=== PATIENT | male | born 1930 | race Caucasian/White ===

== ENCOUNTER 2017-05-13 11:22 | Day surgery (SDC) | payer MEDICARE, OTHER ==
[2017-05-13] MEDS ORDERED: SODIUM CHLORID 0.9% 500 ML IV PRN (12:30)
[2017-05-13] MEDS ORDERED: METOPROLOL TARTRATE 25 MG TAB PO PRN (12:30)
[2017-05-13] MEDS ORDERED: CHLORHEXIDINE GLUCONATE 2 % 1 PACK (2 CLOTHS) TOPICAL PRN (12:30)
[2017-05-13] MEDS ORDERED: POVIDONE IODINE 5% (ANTISEPSIS KIT) 4 APPLICATIONS EACH NARE PRN (12:30)
[2017-05-13] MEDS ORDERED: LACTATED RINGER'S 1000 ML IV PRN (12:30)
[2017-05-13] MEDS ORDERED: XARE20TA PO (13:01)
[2017-05-13] MEDS ORDERED: PROPOFOL 200 MG/20 ML AMP ONE (13:21)
--- NOTE | 2017-05-13 14:33 | MR ---
cc: JEFRY MCCORD DATE: 05/13/2017 INDICATION Atrial fibrillation. PROCEDURE PERFORMED DC cardioversion. DETAILS OF PROCEDURE The patient was sedated by Anesthesia. A 200 joule biphasic shock was delivered on three occasions and converted the patient to sinus rhythm with frequent PACs. The patient remained stable after the procedure. DIAGNOSIS DC cardioversion of atrial fibrillation. DISPOSITION Mr. Moran will be discharged home. We will continue his current medical program. I will see him back for follow-up in our office after discharge. Jfery Mccord MD OQ/[place] /1:51 PM /2:26 PM MTDAngelita
--- NOTE | 2017-05-13 18:04 | EKG ---
Date Performed: 05/13/2017 Time Performed: 12:31:12 PTAGE: 86 years EKG: Atrial fibrillation with PVC(s). Inferior/lateral ST-T changes are nonspecific Abnormal ECG Since PREVIOUS TRACING , no significant change noted PREVIOUS TRACIN08/19/2001 13.27 DOCTOR: Candi Dean Interpretating Date/Time 05/13/2017 18:03:47
--- NOTE | 2017-05-14 12:55 | EKG ---
Date Performed: 05/13/2017 Time Performed: 13:55:48 PTAGE: 86 years EKG: Atrial fibrillation with PVC(s) or aberrant ventricular conduction. Inferior/lateral ST-T c hanges are nonspecific Abnormal ECG PREVIOUS TRACING : 05/13/2017 12.31 Compared to prior tracing no significant change DOCTOR: Diogenes Josue Interpretating Date/Time 05/14/2017 12:55:40
== END 2017-05-13 15:00 | disposition home or self-care (01) ==
LOC: HDOC 11:22 → HDIC 11:23 → HDOC 15:00
PROVIDERS: ATTEND Internal Medicine Interventional Cardiology
DX: I48.91 Unspecified atrial fibrillation (principal); I47.1 Supraventricular tachycardia; E78.5 Hyperlipidemia, unspecified; C61 Malignant neoplasm of prostate; I34.0 Nonrheumatic mitral (valve) insufficiency; I35.1 Nonrheumatic aortic (valve) insufficiency; I36.1 Nonrheumatic tricuspid (valve) insufficiency; R31.9 Hematuria, unspecified
CPT/HCPCS: 92960; 93005

== ENCOUNTER 2017-06-14 11:07 | Inpatient (IN) | payer MEDICARE, OTHER ==
[2017-06-14] VITALS (18 sets, daily range): BP systolic 115–153; BP diastolic 53–68; PULSE 75–112; RESP 12–24; TEMP 94.5–98.8; O2SAT 100
[~2017-06-14] VITALS: Ht 157.5 cm; Wt 52.5 kg
[~2017-06-14 11:07] MED LIST: XARE20TA PO
[2017-06-14] MEDS ORDERED: SODIUM CHLORIDE 0.9% FLUSH 10 ML FLUSH IVF PRN (11:30)
--- NOTE | 2017-06-14 11:37 | PD ---
HPI Chief Complaint: GI Complaint Time Seen by Provider: 11:26 Travel History International Travel<30 days: No Contact w/Intl Traveler<30days: No Traveled to known affect area: No History of Present Illness HPI Patient 86-year-old male presents emergency department for evaluation of 2 days of pallor, weakness and one episode of dark melena stool mixed with bright red blood according to his . Patient has a history of chronic weakness and is followed at home by physical therapy and according to many people a comminuted patient appears quite pale. He is on Xarelto. Has not had a colonoscopy in some time. Patient states he feels quite rundown but has no complaints of pain, no nausea no vomiting. Symptoms of weakness are severe, for the past 2 days and rapidly worsening, associated with GI bleeding as above and in the context of Xarelto use. PFSH Past Medical History Hx Anticoagulant Therapy: Yes (XARELTO) Cardiovascular Problems: Yes (CHF, A-FIB) Past Surgical History Prostatectomy: Yes Social History Alcohol Use: Yes (2 glasses of wine every day) Tobacco Use: No Substance Use: No Allergies-Medications (Allergen,Severity, Reaction): Coded Allergies: No Known Allergies (Unverified Allergy, Unknown, 06/14/17) Reported Meds & Prescriptions Reported Meds & Active Scripts Active Reported Xarelto (Rivaroxaban) 20 Mg Tab 20 Mg PO DAILY Digoxin 0.125 Mg Tab 0.125 Mg PO DAILY Furosemide 40 Mg Tab 40 Mg PO DAILY Klor-Con 10 (Potassium Chloride) 10 Meq Tab 20 Meq PO DAILY Spironolactone 25 Mg Tab 25 Mg PO DAILY Xarelto (Rivaroxaban) 20 Mg Tab 20 Mg PO DAILY Review of Systems Except as stated in HPI: all other systems reviewed are Neg Physical Exam Narrative GENERAL: Well-developed appears extremely pale and run down. SKIN: Focused skin assessment cool and dry and pale.. HEAD: Atraumatic. Normocephalic. EYES: Pupils equal and round. No scleral icterus. No injection or drainage. ENT: No nasal bleeding or discharge. Mucous membranes pink and moist. NECK: Trachea midline. No JVD. CARDIOVASCULAR: Regular rate and rhythm. No murmur appreciated. RESPIRATORY: No accessory muscle use. Clear to auscultation. Breath sounds equal bilaterally. GASTROINTESTINAL: Abdomen soft, non-tender, nondistended. Hepatic and splenic margins not palpable. Blood and melena noticed on rectal exam for rectal temperature. MUSCULOSKELETAL: No obvious deformities. No clubbing. No cyanosis. No edema. NEUROLOGICAL: Awake and alert hard of hearing but appears to be oriented.. Renal nerves II through XII are grossly intact and nonfocal, globally weak but has equal strength in bilateral upper and bilateral lower extremity's. PSYCHIATRIC: Appropriate mood and affect; insight and judgment normal. Data Data Last Documented VS Vital Signs Date Time Temp Pulse Resp B/P (MAP) Pulse Ox O2 Delivery O2 Flow Rate FiO2 06/14/17 13:00 94.5 06/14/17 12:04 103 17 129/59 (82) 06/14/17 11:08 100 Orders Orders Complete Blood Count With Diff (06/14/17 11:24) Comprehensive Metabolic Panel (06/14/17 11:24) Prothrombin Time / Inr (Pt) (06/14/17 11:24) Act Partial Throm Time (Ptt) (06/14/17 11:24) Urinalysis - C+S If Indicated (06/14/17 11:24) Type And Screen (06/14/17 11:24) Ecg Monitoring (06/14/17 11:24) Iv Access Insert/Monitor (06/14/17 11:24) Oximetry (06/14/17 11:24) Sodium Chloride 0.9% Flush (Ns Flush) (06/14/17 11:30) Red Blood Cells (Rbc) (06/14/17 12:34) Blood Product Administration (06/14/17 12:34) Sodium Chlor 0.9% 250 Ml Inj (Ns 250 Ml (06/14/17 12:45) Lactic Acid (06/14/17 12:50) Chest, Single Ap (06/14/17 ) Admit Order (Ed Use Only) (06/14/17 ) Labs Laboratory Tests Test 06/14/17 11:48 06/14/17 13:00 White Blood Count 5.9 TH/MM3 Red Blood Count 1.60 MIL/MM3 Hemoglobin 4.1 GM/DL Hematocrit 14.0 % Mean Corpuscular Volume 87.5 FL Mean Corpuscular Hemoglobin 25.8 PG Mean Corpuscular Hemoglobin Concent 29.4 % Red Cell Distribution Width 19.7 % Platelet Count 286 TH/MM3 Mean Platelet Volume 8.7 FL Neutrophils (%) (Auto) 75.8 % Lymphocytes (%) (Auto) 15.8 % Monocytes (%) (Auto) 7.9 % Eosinophils (%) (Auto) 0.1 % Basophils (%) (Auto) 0.4 % Neutrophils # (Auto) 4.5 TH/MM3 Lymphocytes # (Auto) 0.9 TH/MM3 Monocytes # (Auto) 0.5 TH/MM3 Eosinophils # (Auto) 0.0 TH/MM3 Basophils # (Auto) 0.0 TH/MM3 CBC Comment AUTO DIFF Differential Total Cells Counted 100 Neutrophils % (Manual) 76 % Band Neutrophils % 3 % Lymphocytes % 16 % Monocytes % 4 % Basophils % 1 % Neutrophils # (Manual) 4.7 TH/MM3 Nucleated Red Blood Cells 4 /100 WBC Differential Comment FINAL DIFF MANUAL Platelet Estimate NORMAL Platelet Morphology Comment NORMAL Acanthocytes OCC Prothrombin Time 22.7 SEC Prothromb Time International Ratio 2.2 RATIO Activated Partial Thromboplast Time 27.7 SEC Blood Urea Nitrogen 49 MG/DL Creatinine 1.89 MG/DL Random Glucose 169 MG/DL Total Protein 6.0 GM/DL Albumin 3.0 GM/DL Calcium Level 8.3 MG/DL Alkaline Phosphatase 78 U/L Aspartate Amino Transf (AST/SGOT) 35 U/L Alanine Aminotransferase (ALT/SGPT) 29 U/L Total Bilirubin 0.9 MG/DL Sodium Level 140 MEQ/L Potassium Level 3.8 MEQ/L Chloride Level 105 MEQ/L Carbon Dioxide Level 13.9 MEQ/L Anion Gap 21 MEQ/L Estimat Glomerular Filtration Rate 34 ML/MIN Total Creatine Kinase 266 U/L B-Type Natriuretic Peptide 291 PG/ML Lactic Acid Level 12.7 mmol/L MDM Medical Decision Making Medical Screen Exam Complete: Yes Emergency Medical Condition: Yes Differential Diagnosis GI bleeding, anticoagulated, severe anemia. Narrative Course 86-year-old male presents emergency department with fatigue over the past 2 days accompanied with both dark M bright red blood per rectum. Has severe anemia with a hemoglobin of 4.1, hypothermia with a core temperature of 94, on bear hugger, hemodynamically stable. He has been typing cross for 2 units, He is on xarelto will be given 1 dose of Kcentra. Initially acidotic patient was discussed with the residents for admission, initial recommendations for intermediate care given his level of anemia his weakness and his relative hypothermia. Lactic acid was sent and was elevated significantly to the point with the patient was upgraded to the ICU. Patient was also discussed directly with Dr. Bradford. Stabilizing in the emergency department he is getting blood transfusions. Critical Care Narrative Aggregate critical care time was 35 minutes. Time to perform other separately billable procedures was not included in the critical care time. My time did not include minutes spent treating any other patients simultaneously or on activities that did not directly contribute to the patient's treatment. The services I provided to this patient were to treat and/or prevent clinically significant deterioration that could result in: , disability and organ failure I provided critical care services requiring my management, as noted below: Chart data review, documentation time, medication orders and management, vital sign assessments/reviewing monitor data, ordering and reviewing lab tests, ordering and interpreting/reviewing x-rays and diagnostic studies, care of the patient and discussion of the patient with the admitting physicians. Some time counseling patient's family regarding his diagnosis. Decision-making for reversal of Xarelto with KCentra. Discussion with multiple consultants who arrived including Dr. jett and Dr. Bales Diagnosis Primary Impression: Hypothermia Qualified Codes: T68.XXXA - Hypothermia, initial encounter Additional Impressions: Elevated lactic acid level Acute blood loss anemia GI bleed Admitting Information Admitting Physician Requests: Admit Condition: Serious Jose Luis Galaviz MD Jun 14, 2017 11:37
[2017-06-14] MEDS ORDERED: FURO40TA PO (12:19)
[2017-06-14] MEDS ORDERED: SPIR25TA PO (12:19)
[2017-06-14] MEDS ORDERED: XARE20TA PO (12:19)
[2017-06-14] MEDS ORDERED: KLOR10TA PO (12:19)
[2017-06-14] MEDS ORDERED: DIGO0.12 PO (12:19)
[2017-06-14 12:27] LABS: AUTOMATED NEUTROPHIL # 4.5 TH/MM3 (1.8-7.7); BASOPHIL % 0.4 % (0.0-2.0); EOSINOPHIL % 0.1 % (0.0-4.0); LYMPH % 15.8 % (9.0-44.0); LYMPHOCYTE # 0.9 TH/MM3 (1.0-4.8); MEAN CELL VOLUME 87.5 FL (80.0-100.0); MEAN CORPUSCULAR HEMOGLOBIN 25.8 PG (27.0-34.0); MEAN PLATELET VOLUME 8.7 FL (7.0-11.0); MONO % 7.9 % (0.0-8.0); MONOCYTE # 0.5 TH/MM3 (0-0.9); NEUT % 75.8 % (16.0-70.0); PLATELET COUNT 286 TH/MM3 (150-450); RED CELL DISTRIBUTION WIDTH 19.7 % (11.6-17.2); WHITE BLOOD COUNT 5.9 TH/MM3 (4.0-11.0)
[2017-06-14 12:31] LABS: MEAN CORPUSCULAR HGB CONC 29.4 % (32.0-36.0)
[2017-06-14 12:32] LABS: INTERNATIONAL NORMALIZED RATIO 2.2 RATIO; PROTHROMBIN TIME - PATIENT 22.7 SEC (9.8-11.6)
[2017-06-14 12:33] LABS: HEMOGLOBIN 4.1 GM/DL (13.0-17.0)
[2017-06-14 12:39] LABS: AST (GOT) 35 U/L (15-37); BICARBONATE 13.9 MEQ/L (21.0-32.0); BLOOD UREA NITROGEN 49 MG/DL (7-18); CALCIUM 8.3 MG/DL (8.5-10.1); CHLORIDE 105 MEQ/L (98-107); CREATININE 1.89 MG/DL (0.60-1.30); GLOMERULAR FILTRATION RATE 34 ML/MIN (>89); GLUCOSE,RANDOM 169 MG/DL (74-106); SODIUM (NA) 140 MEQ/L (136-145)
[2017-06-14 12:43] LABS: ALKALINE PHOSPHATASE 78 U/L (45-117); ALT (GPT) 29 U/L (12-78); TOTAL BILIRUBIN ADULT 0.9 MG/DL (0.2-1.0)
[2017-06-14] MEDS ORDERED: SODIUM CHLOR 0.9% 250 ML INJ 250 ML IV ONE ×2 (12:45→19:30)
[2017-06-14 13:01] LABS: BANDS 3 % (0-6); BASOPHILS 1 % (0-2); CORRECTED NUCLEATED RBC 4 /100 WBC (0-0); LYMPHOCYTES 16 % (9-44); MONOCYTES 4 % (0-8); NEUTROPHIL # MANUAL DIFF 4.7 TH/MM3 (1.8-7.7); NUCLEATED RED BLOOD CELL 4 (0-0); POLYS (SEG NEUTROPHILS) 76 % (16-70)
[2017-06-14 13:05] LABS: ACANTHOCYTES OCC (NORMAL)
[2017-06-14] MEDS ORDERED: PROTHROMBIN COMPLEX CONC INJ 2,500 UNITS in SYRINGE/BAG 1 EA IV ONE (13:45)
--- NOTE | 2017-06-14 13:57 | RADRPT ---
EXAM DATE/TIME: 06/14/2017 13:21 [facility] COMPARISON: No previous studies available for comparison. INDICATIONS : Fever. MEDICAL HISTORY : Congestive heart failure. Atrial fibrillation. Hypotension. SURGICAL HISTORY : None. ENCOUNTER: Initial ACUITY: 2 days PAIN SCORE: 0/10 LOCATION: Bilateral chest FINDINGS: A single view of the chest demonstrates the lungs to be symmetrically aerated without evidence of mas s, infiltrate or effusion. The cardiomediastinal contours reveal compensated left ventricular cardio megaly. Osseous structures are intact. CONCLUSION: No acute disease. Compensated left ventricular cardiomegaly Haja Chavis MD on June 14, 2017 at 13:54 Board Certified Radiologist. This report was verified electronically.
--- NOTE | 2017-06-14 14:14 | HHI.HP ---
[facility] Service Family Medicine Primary Care Physician Mazin Bell MD Admission Diagnosis GI bleeding, Severe Anemia Diagnoses: International Travel<30 Days: No Contact w/Intl Traveler<30days: No Known Affected Area: No History of Present Illness 86 y/o M, history of A. fib with DC cardioversion, SVT, and prostate cancer, presents s/p fall this AM. Over the last 2 weeks he has been feeling more fatigued and short of breath. He has had a decreased appetite over the last week. He denies N/V. He had 2 episodes of bloody diarrhea this morning when he woke up. He states he tripped over furniture and fell onto the floor. He was not injured but did not want to get up by himself. He waited for 4 hours for his to get home to help him get up. He usually walks easily by himself but he has had more difficulty over the last few days. Denies any chest pain, dizzyness, blurry vision. He denies any confusion or loss of consciousness at the time of the fall. He denies any history of anemia. Review of Systems Constitutional: COMPLAINS OF: Weight loss (7lbs in 1 week), DENIES: Fever, Chills Endocrine: COMPLAINS OF: Polyuria (increased frequency, he is unsure how long, takes pills for it>) Eyes: DENIES: Eye inflammation, Eye pain Ears, nose, mouth, throat: DENIES: Nasal discharge, Oral lesions Respiratory: DENIES: Wheezing, Sputum production Cardiovascular: DENIES: Chest pain, Palpitations, Syncope Gastrointestinal: COMPLAINS OF: Black stools (here a week ago for HF and had black stool from pills?), Diarrhea (x2 this AM), DENIES: Constipation, Nausea, Vomiting Genitourinary: DENIES: Testicular Pain, Testicular Swelling Integumentary: DENIES: Nail changes Neurologic: DENIES: Headache, Localized weakness Psychiatric: DENIES: Confusion, Mood changes Past Family Social History Past Medical History BPH Atrial fibrillation, with DC cardioversion Supraventricular tachycardia Dyslipidemia Prostate cancer Past Surgical History Radical prostatectomy Surgery for spinal stenosis [facility] Had colonoscopy - doesn't know when Allergies: Coded Allergies: No Known Allergies (Unverified Allergy, Unknown, 06/14/17) Family History Noncontributory Social History live at home with , 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 SKIN: No rashes, ecchymoses or lesions. Cool and dry. HEAD: Atraumatic. Normocephalic. No temporal or scalp tenderness. EYES: Pupils equal round and reactive. Extraocular motions intact. No scleral icterus. No injection or drainage. ENT: Nose without bleeding, purulent drainage or septal hematoma. Throat without erythema, tonsillar hypertrophy or exudate. Uvula midline. Airway patent. NECK: Trachea midline. No JVD or lymphadenopathy. Supple, nontender, no meningeal signs. CARDIOVASCULAR: Irregularly irregular, no murmurs rubs or gallops. RESPIRATORY: Clear to auscultation. Breath sounds equal bilaterally. No wheezes , rales, or rhonchi. GASTROINTESTINAL: Abdomen soft, non-tender, nondistended. No hepato-splenomegaly , or palpable masses. No guarding. MUSCULOSKELETAL: Extremities without clubbing, cyanosis, or edema. No joint tenderness, effusion, or edema noted. No calf tenderness. Negative Homans sign bilaterally. NEUROLOGICAL: Awake and alert. Cranial nerves II through XII intact. Motor and sensory grossly within normal limits. Five out of 5 muscle strength in all muscle groups. Normal speech. Laboratory Laboratory Tests Test 06/14/17 11:48 06/14/17 13:00 White Blood Count 5.9 Red Blood Count 1.60 Hemoglobin 4.1 Hematocrit 14.0 Mean Corpuscular Volume 87.5 Mean Corpuscular Hemoglobin 25.8 Mean Corpuscular Hemoglobin Concent 29.4 Red Cell Distribution Width 19.7 Platelet Count 286 Mean Platelet Volume 8.7 Neutrophils (%) (Auto) 75.8 Lymphocytes (%) (Auto) 15.8 Monocytes (%) (Auto) 7.9 Eosinophils (%) (Auto) 0.1 Basophils (%) (Auto) 0.4 Neutrophils # (Auto) 4.5 Lymphocytes # (Auto) 0.9 Monocytes # (Auto) 0.5 Eosinophils # (Auto) 0.0 Basophils # (Auto) 0.0 CBC Comment AUTO DIFF Differential Total Cells Counted 100 Neutrophils % (Manual) 76 Band Neutrophils % 3 Lymphocytes % 16 Monocytes % 4 Basophils % 1 Neutrophils # (Manual) 4.7 Nucleated Red Blood Cells 4 Differential Comment FINAL DIFF MANUAL Platelet Estimate NORMAL Platelet Morphology Comment NORMAL Acanthocytes OCC Prothrombin Time 22.7 Prothromb Time International Ratio 2.2 Activated Partial Thromboplast Time 27.7 Blood Urea Nitrogen 49 Creatinine 1.89 Random Glucose 169 Total Protein 6.0 Albumin 3.0 Calcium Level 8.3 Alkaline Phosphatase 78 Aspartate Amino Transf (AST/SGOT) 35 Alanine Aminotransferase (ALT/SGPT) 29 Total Bilirubin 0.9 Sodium Level 140 Potassium Level 3.8 Chloride Level 105 Carbon Dioxide Level 13.9 Anion Gap 21 Estimat Glomerular Filtration Rate 34 Result Diagram: 06/14/17 1148 06/14/17 1148 Septic Shock Reassessment Septic shock perfusion: reassessment completed Caprini VTE Risk Assessment Caprini VTE Risk Assessment: Mod/High Risk (score >= 2) Caprini Risk Assessment Model Point Value = 1 Point Value = 2 Point Value = 3 Point Value = 5 Age 41-60 Minor surgery BMI > 25 kg/m2 Swollen legs Varicose veins or History of unexplained or recurrent spontaneous Oral contraceptives or hormone replacement Sepsis (< 1 month) Serious lung disease, including pneumonia (< 1 month) Abnormal pulmonary function Acute myocardial infarction Congestive heart failure (< 1 month) History of inflammatory bowel disease Medical patient at bed rest Age 61-74 Arthroscopic surgery Major open surgery (> 45 min) Laparoscopic surgery (> 45 min) Malignancy Confined to bed (> 72 hours) Immobilizing plaster cast Central venous access Age >= 75 History of VTE Family history of VTE Factor V Leiden Prothrombin [id number] Lupus anticoagulant Anticardiolipin antibodies Elevated serum homocysteine Heparin-induced thrombocytopenia Other congenital or acquired thrombophilia Stroke (< 1 month) Elective arthroplasty Hip, pelvis, or leg fracture Acute spinal cord injury (< 1 month) Prophylaxis Regimen Total Risk Factor Score Risk Level Prophylaxis Regimen 0-1 Low Early ambulation 2 Moderate Order ONE of the following: *Sequential Compression Device (SCD) *Heparin 5000 units SQ BID 3-4 Higher Order ONE of the following medications: *Heparin 5000 units SQ TID *Enoxaparin/Lovenox 40 mg SQ daily (WT < 150 kg, CrCl > 30 mL/min) *Enoxaparin/Lovenox 30 mg SQ daily (WT < 150 kg, CrCl > 10-29 mL/min) *Enoxaparin/Lovenox 30 mg SQ BID (WT < 150 kg, CrCl > 30 mL/min) AND/OR *Sequential Compression Device (SCD) 5 or more Highest Order ONE of the following medications: *Heparin 5000 units SQ TID (Preferred with Epidurals) *Enoxaparin/Lovenox 40 mg SQ daily (WT < 150 kg, CrCl > 30 mL/min) *Enoxaparin/Lovenox 30 mg SQ daily (WT < 150 kg, CrCl > 10-29 mL/min) *Enoxaparin/Lovenox 30 mg SQ BID (WT < 150 kg, CrCl > 30 mL/min) AND *Sequential Compression Device (SCD) Assessment and Plan Assessment and Plan 86-year-old male, on chronic anticoagulation for atrial fibrillation, presents with 2 weeks of weakness and fatigue, bright red blood per rectum, and hemoglobin of 4.1. Patient admitted for transfusion, anticoagulation reversal, and GI evaluation. Discussed Condition With Dr. Bradford Problem List: (1) Acute kidney injury ICD Codes: N17.9 - Acute kidney failure, unspecified Status: Acute Plan: History of BPH Unknown baseline creatinine Creatinine 1.89 on admission Continue with IV fluids @ 100mls/hr Continue home diuretics; Lasix 40 PO daily, Spironolactone 25mg daily Add Lasix 20mg IVP x 1 to cover for blood transfusion (2) Hypothermia ICD Codes: T68.XXXA - Hypothermia, initial encounter Status: Resolved Plan: Temperature of 94.5 on admission Likely related to acute anemia and hemoglobin of 4 Bear hugger administered Last Temp: 98.5 f/u temps (3) Acute blood loss anemia ICD Codes: D62 - Acute posthemorrhagic anemia Status: Acute Plan: Acute anemia, bright red blood per rectum, hemodynamically stable INR 2.2, Xarelto reversed Cleared for endoscopy by Cardio Symptoms 2 weeks, hemoglobin of 4.1 on admission Transfuse 4 units PRBCs Follow up posttransfusion CBC Appreciate GI recs: f/u upper endoscopy Will consider Colonoscopy (4) Elevated lactic acid level ICD Codes: R79.89 - Other specified abnormal findings of blood chemistry Status: Resolved Plan: Elevated lactic acid on admission of 12.7 May be due to lack of tissue perfusion Repeat lactic acid 2.7 (5) Atrial fibrillation ICD Codes: I48.91 - Unspecified atrial fibrillation Status: Chronic Plan: Chronic atrial fibrillation & SVT, with Xarelto anticoagulation Continue Digoxin Hold Xarelto Status post K Centra INR 2.2 Due to over anticoagulation? (6) GI bleed ICD Codes: K92.2 - Gastrointestinal hemorrhage, unspecified Status: Acute Plan: See plan under anemia for endoscopy GI following Follow-up results of endoscopy Consider colonoscopy Continue Protonix 40 mg IV twice a day (7) Fall ICD Codes: W19.XXXA - Unspecified fall, initial encounter Status: Acute Plan: Likely due to weakness and anemia versus sepsis versus electrolyte abnormality versus hypoglycemia No loss of consciousness per patient Follow-up H&H Follow-up blood culture Follow-up urine culture Chest x-ray within normal limits f/u BMP and electrolytes in AM (8) fen/px Status: Acute Plan: Fluids: Continue normal saline at 100mls/hr for BETI, continue home diuretics and caution with overhydration Electrolytes: BMP within normal limits, follow-up BMP tomorrow Nutrition: Liquid diet per GI GI prophylaxis: Pantoprazole DVT prophylaxis: Held Physician Certification 2 Midnight Certification Type: Admission for Inpatient Services Order for Inpatient Services The services are ordered in accordance with Medicare regulations or non- Medicare payer requirements, as applicable. In the case of services not specified as inpatient-only, they are appropriately provided as inpatient services in accordance with the 2-midnight benchmark. Estimated LOS (days): 2 days is the estimated time the patient will need to remain in the hospital, assuming treatment plan goals are met and no additional complications. Post-Hospital Plan: Home Fay Dillard MD R2 Jun 14, 2017 14:14
[2017-06-14] MEDS ORDERED: TEMAZEPAM 15 MG CAP PO PRN (14:45)
[2017-06-14] MEDS ORDERED: LACTULOSE SYRUP 20 GM/30 ML CUP PO PRN (14:45)
[2017-06-14] MEDS ORDERED: BISACODYL 10 MG SUPP RECTAL PRN (14:45)
[2017-06-14] MEDS ORDERED: MAGNESIUM HYDROXIDE SUSP 30 ML CUP PO PRN (14:45)
[2017-06-14] MEDS ORDERED: ONDANSETRON HCL 4 MG/2 ML VIAL IVP PRN (14:45)
[2017-06-14] MEDS ORDERED: NALOXONE HCL 0.4 MG/ML AMP IV PUSH PRN (14:45)
[2017-06-14] MEDS ORDERED: SENNOSIDES 8.6 MG TAB PO PRN (14:45)
[2017-06-14] MEDS ORDERED: ACETAMINOPHEN 325 MG TAB PO PRN (14:45)
[2017-06-14] MEDS ORDERED: PANTOPRAZOLE SODIUM 40 MG VIAL IV PUSH SCH (16:00)
[2017-06-14] MEDS: DIGOXIN 0.125 MG TAB PO SCH (16:58)
[2017-06-14] MEDS: SPIRONOLACTONE 25 MG TAB PO SCH (16:59)
[2017-06-14] MEDS: POTASSIUM CHLORIDE 10 MEQ CONTROLLED RELEASE TAB PO SCH (16:59)
[2017-06-14] MEDS: FUROSEMIDE 40 MG TAB PO SCH (16:59)
--- NOTE | 2017-06-14 17:16 | HHI.FPPN ---
Subjective Remarks Attending medical note: Patient seen and examined. Patient known to the undersigned physician from the previous practice location 4.5 years ago. Patient's and daughter at bedside. 86-year-old gentleman admitted after the insidious onset of the last 2 weeks of feeling increasingly fatigued and short of breath. On the day of admission patient's observed him to be on the floor after a probable fall, was assisted to the bathroom where she noted bright red blood per rectum. No prior history of GI bleeding. Patient last had a colonoscopy by Dr. Xavi Miller they estimate for- 5 years ago. Has never had an upper endoscopy. No prior history of peptic ulcer disease. Has not taking any NSAIDs or aspirin. It is of note that the patient has been on Xarelto 12 mg daily and has already received KCentra dose. In the fall of 2016 was diagnosed with atrial fibrillation, patient's regional wildlife agent is Dr. Mccord who has artery seen the patient as well in the emergency room. Patient is alert, appears to be somewhat distant in conversation and is unable to give easily orientation to time and place. Medications have included the Xarelto, digoxin 0.25 mg daily, Lasix 40 mg daily , Klor-Con 10 milliequivalent daily, prolactin 25 mg daily. Patient has had an associated congestive heart failure treated over the last 2-3 months. In addition the patient has had hematuria, his urologist Dr. Michelle has not been able to perform a cystoscopy to date although imaging apparently is unremarkable of the tract. Objective Vitals Vital Signs Date Time Temp Pulse Resp B/P (MAP) Pulse Ox O2 Delivery O2 Flow Rate FiO2 06/14/17 17:01 98.1 94 24 124/53 100 06/14/17 16:47 98.8 97 23 124/53 100 06/14/17 16:26 98.8 83 15 124/58 100 06/14/17 15:42 79 12 115/56 100 06/14/17 14:52 100 21 06/14/17 14:45 97.7 86 21 124/56 100 06/14/17 13:54 97.7 92 21 126/58 100 06/14/17 13:39 97.6 82 16 137/59 100 06/14/17 13:00 94.5 06/14/17 12:04 103 17 129/59 (82) 06/14/17 11:08 97.4 112 14 149/59 (89) 100 I/O 06/13/17 06/13/17 06/13/17 06/14/17 06/14/17 06/14/17 07:00 15:00 23:00 07:00 15:00 23:00 Intake Total 800 ml Balance 800 ml Intake IV Total 350 ml Packed Cells 400 ml Blood Product IV Normal Saline Flush 50 ml Result Diagram: 06/14/17 1148 06/14/17 1148 Objective Remarks Vital signs noted. Blood pressure 149/59 pulse 100/m and irregular consistent with a defibrillation tension at some point for had been hypothermic on presentation. Appearance: Older gentleman who is notably pale, makes good eye contact, recognizes undersigned and has difficulty with orientation. HEENT: Presence of dentures, very pale mucosa, pale face. Lungs: Diminished clear breath sounds Cardiac: Irregular rhythm, no S3, faint systolic murmur the left sternal border. Abdomen Active bowel sounds, soft, nontender no masses. Extremities: Warm and dry, no edema. 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 We'll follow. A/P Assessment and Plan Clinical assessment #1 bright red blood per rectum with found hemoglobin of 4.1. Hematocrit 14.0. On Zaroxolyn. Will transfuse 2 at least a hemoglobin of 8 very carefully. Reversal agent for Xarelto aren't administered. Strength testing consultation. Dr. Mccord has seen patient clearing for colonoscopy when appropriate clinically. #2 history of atrial fibrillation on anticoagulation #3 congestive heart failure #4 BPH and hematuria #5 elevated lactate acid #6 refer to resident note for additional past medical history, social history, family history and review of systems. And examined. Case reviewed and discussed with the resident team. Agree with plan of care is discussed with me and documented in the resident note. Ángel Bradford MD Jun 14, 2017 17:16
--- NOTE | 2017-06-14 17:52 | MB ---
cc: DEBRARIVER DATE OF CONSULTATION: 06/14/2017. HISTORY OF PRESENT ILLNESS: Mr. Moran is an 86-year-old white male with history of atrial fibrillation who was found by his after he fell out of bed this morning. He did not lose consciousness. He has been progressively tired and weak. He also admitted to shortness of breath but no chest pain. His noticed bloody diarrhea today. He was found to be severely anemic. He has been anticoagulated with Xarelto for his atrial fibrillation. PAST MEDICAL HISTORY: His past medical history is positive for: 1. Atrial fibrillation. 2. Supraventricular tachycardia. 3. Dyslipidemia. 5. Prostate cancer. 6. Keratosis. 7. History of surgery for spinal stenosis. 8. Radical prostatectomy. 9. History of DC cardioversion for atrial fibrillation. MEDICATIONS: 1. Xarelto. 2. Digoxin. 3. Furosemide. 4. Spironolactone. ALLERGIES None. SOCIAL HISTORY: The patient does not smoke. He drinks alcohol socially. He is and accompanied by his and his daughter. FAMILY HISTORY: Family history is positive for heart disease in both parents. REVIEW OF SYSTEMS: The review of systems is otherwise negative. PHYSICAL EXAMINATION: VITAL SIGNS: Blood pressure 124/53, pulse 97 and irregular. HEAD, EYES, EARS, NOSE, THROAT: Negative. NECK: 2+ carotid upstrokes, no bruits. LUNGS: Clear. HEART: Irregularly irregular with a 2/6 systolic murmur at the left lateral sternal border and apex. No gallop or rub. ABDOMEN: Abdomen soft. No bruits. EXTREMITIES: Without edema. 1 to 2+ distal pulses. NEUROLOGIC: Grossly nonfocal. EKGS: EKG was reviewed and showed atrial fibrillation, PVCs and diffuse ST-T changes. LABORATORY DATA: Hemoglobin 4.1, hematocrit 14.0. Potassium 3.8, creatinine 1.89. AST 35, ALT 29. DIAGNOSIS: 1. Lower GI bleeding. 2. Severe anemia. 3. Chronic atrial fibrillation. 4. Anticoagulation. DISPOSITION Mr. Moran was transfused and was given Kcentra to reverse his anticoagulation. He will undergo GI evaluation including endoscopy. He had a PET scan which was negative for ischemia in March of 2017. He can be cleared for endoscopy from the cardiac standpoint. I will follow him for cardiology during his hospitalization. I will also see him back for followup in our office after discharge. MD LYLE Montiel/SHANNAN /4:54 PM /5:22 PM IVANIA
[2017-06-14] MEDS: SODIUM CHLOR 0.9% 1000 ML INJ 1,000 ML IV SCH (18:17)
[2017-06-14 18:48] LABS: URINE COLOR YELLOW (YELLW/STRAW)
[2017-06-14 18:49] LABS: BACTERIA, URINE RARE /hpf; BILIRUBIN, URINE NEG (NEG); BLOOD, URINE NEG (NEG); GLUCOSE,URINE NEG (NEG); HYALINE CAST, URINE 20 /lpf (RARE); KETONE, URINE NEG (NEG); MUCUS URINE FEW /lpf (OCC); NITRITE,URINE NEG (NEG); URINE LEUKOCYTE ESTERASE NEG (NEG)
[2017-06-14] MEDS: PANTOPRAZOLE SODIUM 40 MG VIAL IV PUSH SCH (19:50)
--- NOTE | 2017-06-14 19:59 | MB ---
cc: CLIFF HERNANDEZ MD DATE OF CONSULTATION: 06/14/2017. REASON FOR CONSULTATION: GI bleed. REFERRING PHYSICIAN: Dr. Mccord. HISTORY OF PRESENT ILLNESS: Alban is a very pleasant 86-year-old male with a history of atrial fibrillation that the family states was discovered this past fall of 2016. They state he underwent an unsuccessful cardioversion and was subsequently started on Xarelto a few months ago. His daughter, rKys, states that when he first started on Xarelto he had one black stool and some gross hematuria but that resolved on its own. He had a colonoscopy with Dr. Miller approximately 5 years ago and they state nothing was found. He has had a few colonoscopies over the years and they state he has no history of diverticular disease or polyps. He has never had an upper endoscopy. No history of ulcer disease. He has been having problems with shortness of breath and dyspnea on exertion and was thought recently by his athletic turf worker to be in congestive heart failure. They state his ankles were swelling, which improved with diuretics. Over the past few weeks he also has had poor appetite and some difficulty eating. His daughter states that he has been living on just a couple of Ensures a day. No nausea or vomiting. He denies any abdominal pain. No heartburn. This morning he was very dizzy and fell but did not lose consciousness. He was found by his and had a large bloody stool that she states was both dark and red but mostly red. It was also described as a maroon color. His last bowel movement was this morning. He was brought to the emergency room and his hemoglobin was 4.1. He is now getting a second unit of packed red blood cells. His INR was 2.2 with a pro-time of 22.7 and he did receive Kcentra to reverse his Xarelto. He is feeling better. He has no chest pain. He has been seen by Dr. Mccord and cleared for endoscopic procedures. SOCIAL HISTORY: The patient is and his , Keerthi, is at the bedside and his eldest daughter, Krys, is at the bedside. No smoking history. He has a history of social drinking. PAST MEDICAL HISTORY: His medical history is remarkable for: 1. Atrial fibrillation, 2. Dyslipidemia. 3. Prostate cancer. 4. Spinal stenosis. PAST SURGICAL HISTORY: He has had a prostatectomy. ALLERGIES: HE HAS NO KNOWN DRUG ALLERGIES. MEDICATIONS AT HOME: His medications at home have been: 1. The Xarelto. 2. Diuretics. 3. He was recently also started on Digoxin. He does not take aspirin or NSAIDs because of the Xarelto. FAMILY HISTORY: Family history is remarkable for heart disease. REVIEW OF SYSTEMS: His review of systems is remarkable for the recent decline over the last month or so, according to his family, with poor appetite and some occasional abdominal discomfort. He also has had lightheadedness and dizziness for the past few days and the maroon bloody stool this morning as mentioned above. No chest pain. The remainder of the ten-point review of systems is unremarkable. PHYSICAL EXAMINATION: GENERAL: The physical exam reveals a slightly pale male in no acute distress. VITAL SIGNS: His blood pressure is 139/60, pulse 88, respirations are 17 and nonlabored. Temperature is 98.3 orally. HEAD, EYES, EARS, NOSE, THROAT: The sclerae are nonicteric. NECK: No obvious jugular venous distention. LUNGS: Clear to auscultation and percussion. HEART: Heart sounds are irregular with a 1-2/6 systolic murmur on the lower sternal border. ABDOMEN: The abdomen is soft, nontender and nondistended. No masses. No organomegaly. Bowel sounds are normal. RECTAL: Deferred. No cyanosis or clubbing. He has just trace ankle edema bilaterally. NEUROLOGIC: He is alert and answers questions appropriately. LABORATORY DATA: In addition to his severe anemia with hemoglobin of 4.1, hematocrit of 14, his platelet count is normal at 286,000. White count 5.9. BUN was 49 with creatinine of 1.89. Carbon dioxide of 13.9 and a lactic acid of 12.7. A blood arterial blood gas is pending. AST 35, ALT 29, alkaline phosphatase and bilirubin are normal. Albumin is 3.0. IMAGING STUDIES: Chest x-ray shows compensated left ventricular cardiomegaly with no active disease. IMPRESSION: 1. GI bleed with severe anemia. 2. Atrial fibrillation recently on Xarelto. 3. Recent decline in appetite. PLAN: I had a lengthy discussion with his and his daughter, Krys, at the bedside. The bleeding appears to have slowed as he is hemodynamically stable and not had a bowel movement for several hours. His Xarelto has been reversed and he is getting a transfusion. He also received a dose of pantoprazole and has it ordered for q. 12 hours. I discussed the possibility of an upper GI bleed as well as a lower GI bleed. He has no significant abdominal pain so a diverticular bleed is certainly high on the list. He also has been having some upper GI vague symptoms along with decreased appetite, and certainly an upper GI problem including malignancy needs to be considered. They are concerned about his age and frailty. He had a negative PET scan for ischemia in March of 2017 and has been cleared for endoscopic procedures by Dr. Mccord. I discussed some different options and I would recommend that we continue to resuscitate him transfusing as necessary and monitor his hemoglobin and hematocrit closely. Hopefully his bleeding will stop on its own. I would advise at least an upper endoscopy to rule out any upper GI pathology as discussed above. The indications for colonoscopy were also discussed. Clearing the colon for possible future anticoagulation would be helpful but they state that they would prefer that he not undergo colonoscopy if possible. I think it would be too difficult for him to prep adequately for colonoscopy tonight given his frailty and anemia. If no source for upper GI bleed, can re-discuss the colonoscopy option during this admission. I reviewed the risks of the endoscopic procedures as well as the benefits and alternatives and informed consent was obtained. Will follow closely with you. Thank you this consult. MD JULIO Barnett/SHANNAN /6:29 PM /7:17 PM IVANIA
[2017-06-14] MEDS ORDERED: FUROSEMIDE 20 MG/2 ML VIAL IV PUSH ONE (20:00)
[2017-06-14] MEDS ORDERED: CHLORHEXIDINE GLUCONATE 2 % 1 PACK (2 CLOTHS)(extra cloths) TOPICAL PRN (20:45)
[2017-06-14 22:09] LABS: LACTIC ACID SEPSIS PROTOCOL 2.7 mmol/L (0.4-2.0)
[2017-06-15] VITALS (14 sets, daily range): BP systolic 115–142; BP diastolic 56–67; PULSE 60–111; RESP 11–20; TEMP 97.6–99.1; O2SAT 95–100
[2017-06-15] MEDS: SODIUM CHLOR 0.9% 1000 ML INJ 1,000 ML IV SCH ×3 (01:58→21:45)
[2017-06-15] MEDS: CHLORHEXIDINE GLUCONATE 2 % 1 PACK (2 CLOTHS)(taper/protocol) TOPICAL SCH (04:12)
[2017-06-15 07:55] LABS: AUTOMATED NEUTROPHIL # 4.4 TH/MM3 (1.8-7.7); BASOPHIL % 0.4 % (0.0-2.0); EOSINOPHIL % 0.4 % (0.0-4.0); HEMATOCRIT 29.1 % (39.0-51.0); HEMOGLOBIN 10.1 GM/DL (13.0-17.0); LYMPH % 20.8 % (9.0-44.0); LYMPHOCYTE # 1.4 TH/MM3 (1.0-4.8); MEAN CELL VOLUME 80.2 FL (80.0-100.0); MEAN CORPUSCULAR HEMOGLOBIN 27.9 PG (27.0-34.0); MEAN CORPUSCULAR HGB CONC 34.8 % (32.0-36.0); MEAN PLATELET VOLUME 8.4 FL (7.0-11.0); MONO % 12.6 % (0.0-8.0); MONOCYTE # 0.8 TH/MM3 (0-0.9); NEUT % 65.8 % (16.0-70.0); PLATELET COUNT 174 TH/MM3 (150-450); RED BLOOD COUNT 3.63 MIL/MM3 (4.50-5.90); WHITE BLOOD COUNT 6.7 TH/MM3 (4.0-11.0)
[2017-06-15 08:18] LABS: INTERNATIONAL NORMALIZED RATIO 1.5 RATIO; PROTHROMBIN TIME - PATIENT 15.5 SEC (9.8-11.6)
[2017-06-15 08:50] LABS: CALCIUM 7.8 MG/DL (8.5-10.1); CREATININE 1.45 MG/DL (0.60-1.30); MAGNESIUM 2.3 MG/DL (1.5-2.5); PHOSPHORUS 3.8 MG/DL (2.5-4.9)
[2017-06-15] MEDS ORDERED: DIGOXIN 0.5 MG/2 ML VIAL IV PUSH ONE (09:00)
[2017-06-15] MEDS: POTASSIUM CHLORIDE 10 MEQ CONTROLLED RELEASE TAB PO SCH (09:00)
[2017-06-15] MEDS: FUROSEMIDE 40 MG TAB PO SCH (09:00)
[2017-06-15] MEDS: SPIRONOLACTONE 25 MG TAB PO SCH (09:00)
[2017-06-15 09:12] LABS: BANDS 1 % (0-6); CORRECTED NUCLEATED RBC 7 /100 WBC (0-0); LYMPHOCYTES 18 % (9-44); METAMYELOCYTES 1 % (0-1); MONOCYTES 6 % (0-8); NUCLEATED RED BLOOD CELL 7 (0-0); POLYS (SEG NEUTROPHILS) 73 % (16-70)
[2017-06-15] MEDS: PANTOPRAZOLE SODIUM 40 MG VIAL IV PUSH SCH ×2 (09:15→21:45)
--- NOTE | 2017-06-15 11:29 | HHI.GIFU ---
GI Follow-up Note Consult Follow-up Subjective: Patient laying in bed comfortably, no new complaints and no further BMs since yesterday am. Hgb up to 10 after 4 U. Passed swallow eval. Daughter Krys at bedside. Objective: PHYSICAL EXAMINATION: Vitals signs stable No fever CHEST: breathing non-labored ABDOMEN: Soft, nondistended, nontender; no hepatosplenomegaly. EXTREMITIES: No clubbing, cyanosis, or edema. SKIN: Normal; no rash; no jaundice. RN DIABETES: No focal deficits; alert and oriented times three. Available Data (labs, X- Rays, Procedues) : Laboratory Tests Test 06/14/17 11:48 06/14/17 13:00 06/14/17 15:17 06/14/17 18:15 Red Blood Count 1.60 MIL/MM3 (4.50-5.90) Hemoglobin 4.1 GM/DL (13.0-17.0) Hematocrit 14.0 % (39.0-51.0) Mean Corpuscular Hemoglobin 25.8 PG (27.0-34.0) Mean Corpuscular Hemoglobin Concent 29.4 % (32.0-36.0) Red Cell Distribution Width 19.7 % (11.6-17.2) Neutrophils (%) (Auto) 75.8 % (16.0-70.0) Lymphocytes # (Auto) 0.9 TH/MM3 (1.0-4.8) Neutrophils % (Manual) 76 % (16-70) Nucleated Red Blood Cells 4 /100 WBC (0-0) Prothrombin Time 22.7 SEC (9.8-11.6) Blood Urea Nitrogen 49 MG/DL (7-18) Creatinine 1.89 MG/DL (0.60-1.30) Random Glucose 169 MG/DL (74-106) Total Protein 6.0 GM/DL (6.4-8.2) Albumin 3.0 GM/DL (3.4-5.0) Calcium Level 8.3 MG/DL (8.5-10.1) Carbon Dioxide Level 13.9 MEQ/L (21.0-32.0) Anion Gap 21 MEQ/L (5-15) Estimat Glomerular Filtration Rate 34 ML/MIN (>89) B-Type Natriuretic Peptide 291 PG/ML (0-100) Lactic Acid Level 12.7 mmol/L (0.4-2.0) Arterial Blood pH 7.57 (7.380-7.420) Arterial Blood Partial Pressure CO2 23 mmHg (38-42) Arterial Blood Oxygen Content 6.2 Vol % (12.0-20.0) Blood Gas Hemoglobin 4.4 G/DL (12.0-16.0) Urine RBC 8 /hpf (0-3) Urine Bacteria RARE /hpf (NONE) Urine Mucus FEW /lpf (OCC) Test 06/14/17 20:30 06/14/17 21:40 06/15/17 00:30 06/15/17 07:30 Lactic Acid Level 2.7 mmol/L (0.4-2.0) 2.4 mmol/L (0.4-2.0) Red Blood Count 3.63 MIL/MM3 (4.50-5.90) Hemoglobin 10.1 GM/DL (13.0-17.0) Hematocrit 29.1 % (39.0-51.0) Red Cell Distribution Width 19.0 % (11.6-17.2) Monocytes (%) (Auto) 12.6 % (0.0-8.0) Neutrophils % (Manual) 73 % (16-70) Nucleated Red Blood Cells 7 /100 WBC (0-0) Prothrombin Time 15.5 SEC (9.8-11.6) Fibrinogen 167 mg/dL (227-377) Blood Urea Nitrogen 46 MG/DL (7-18) Creatinine 1.45 MG/DL (0.60-1.30) Calcium Level 7.8 MG/DL (8.5-10.1) Potassium Level 3.2 MEQ/L (3.5-5.1) Estimat Glomerular Filtration Rate 46 ML/MIN (>89) Ammonia 66 MCMOL/L (11-32) ASSESSMENT/PLAN: 1. Acute GI bleed-stable. Pt appears to have stopped bleeding. Last colonoscopy was 05/2010. Discussed options again with pt and daughter. I think it would be advisable for both EGD and colonoscopy and since he has been stable we agreed to start prepping for colonoscopy tomorrow and will put him on the schedule for saturday. Stay on clear liquids and continue to monitor H&H (suggest q12hrs). It was a pleasure seeing Alban Moran Thank you for this consult. Entered by: Mark Anthony Zavala MD Jun 15, 2017 11:29
--- NOTE | 2017-06-15 14:15 | HHI.FPPN ---
Subjective Remarks Pt seen and examined this morning. Temperature within normal limits, vital signs stable. Pts daughter present at bedside. He reports feeling significantly improved. He denies chest pain, shortness of breath, abdominal pain. He has no additional acute concerns. (Magalys Prince MD R3) Objective Vitals Vital Signs Date Time Temp Pulse Resp B/P (MAP) Pulse Ox O2 Delivery O2 Flow Rate FiO2 06/15/17 12:00 68 06/15/17 10:00 71 06/15/17 08:00 71 06/15/17 08:00 98.2 71 14 133/62 (85) 99 06/15/17 06:00 67 06/15/17 04:00 70 06/15/17 04:00 98.8 70 14 115/56 (75) 99 06/15/17 02:00 84 06/15/17 01:52 99.1 80 16 137/60 100 06/15/17 00:00 80 06/15/17 00:00 98.6 80 14 130/62 (84) 100 06/14/17 22:13 98.5 83 14 152/68 100 06/14/17 22:00 82 06/14/17 21:58 98.7 84 22 153/67 100 06/14/17 21:14 98.3 84 16 150/63 (92) 100 06/14/17 21:13 84 06/14/17 20:16 06/14/17 19:45 75 18 140/61 (87) 100 Room Air 06/14/17 18:19 98.3 88 17 139/60 (86) 100 Room Air 06/14/17 17:01 98.1 94 24 124/53 100 06/14/17 16:47 98.8 97 23 124/53 100 06/14/17 16:26 98.8 83 15 124/58 100 06/14/17 15:42 79 12 115/56 100 06/14/17 14:52 100 21 06/14/17 14:45 97.7 86 21 124/56 100 I/O 06/14/17 06/14/17 06/14/17 06/15/17 06/15/17 06/15/17 07:00 15:00 23:00 07:00 15:00 23:00 Intake Total 1210 ml 1060 ml Output Total 1950 ml Balance 1210 ml -890 ml Intake Oral 240 ml IV Total 350 ml Packed Cells 800 ml 800 ml Blood Product IV Normal Saline Flush 60 ml 20 ml Output Urine Total 1950 ml # Bowel Movements 0 (Magalys Prince MD R3) Result Diagram: 06/15/17 0730 06/15/17 0730 Objective Remarks GENERAL: Thin elderly male, in no apparent distress. SKIN: Cool and dry. HEAD: Atraumatic. Normocephalic. EYES: Extraocular motions intact. No scleral icterus. No injection or drainage. ENT: Nose without bleeding, purulent drainage or septal hematoma. Airway patent. CARDIOVASCULAR: Irregularly irregular, no murmurs rubs or gallops. RESPIRATORY: Clear to auscultation. Breath sounds equal bilaterally. No wheezes , rales, or rhonchi. GASTROINTESTINAL: Abdomen soft, non-tender, nondistended. No hepato-splenomegaly , or palpable masses. No guarding. MUSCULOSKELETAL: Extremities without clubbing, cyanosis, or edema. No joint tenderness, effusion, or edema noted. No calf tenderness. Negative Homans sign bilaterally. NEUROLOGICAL: Awake and alert. Normal speech. (Magalys Prince MD R3) A/P Assessment and Plan 86-year-old male, on chronic anticoagulation for atrial fibrillation, presents with 2 weeks of weakness and fatigue, bright red blood per rectum, and hemoglobin of 4.1. Patient admitted for transfusion, anticoagulation reversal, and GI evaluation. Discharge Planning Anticipate discharge once anemia has resolved and patient has been cleared by GI. Likely 1-2 days. (Magalys Prince MD R3) Assessment and Plan Attending note: Patient seen and examined on the morning of 06/15/17. Case reviewed and discussed with the resident team. Agree with plan of care as discussed with me and documented in the resident note. Family at bedside. Discussed diagnostic plans for eventual EGD and colonoscopy. Appreciate Dr. Bales's consultation. Hemodynamically stable, consider discharge to medical floor. (Ángel Bradford MD) Problem List: (1) Acute blood loss anemia ICD Codes: D62 - Acute posthemorrhagic anemia Status: Acute Plan: Acute anemia, bright red blood per rectum, hemodynamically stable INR 2.2, Xarelto reversed Cleared for endoscopy by Cardio Symptoms 2 weeks, hemoglobin of 4.1 on admission Transfuse 4 units PRBCs Posttransfusion H&H: 10.1/29.1 We'll check an H&H later this afternoon Continue to monitor for signs of blood loss Appreciate GI recs and intervention: Plan for EGD and colonoscopy on Saturday (2) GI bleed ICD Codes: K92.2 - Gastrointestinal hemorrhage, unspecified Status: Acute Plan: See plan under anemia (3) Acute kidney injury ICD Codes: N17.9 - Acute kidney failure, unspecified Status: Resolved Plan: History of BPH Unknown baseline creatinine Creatinine 1.89 on admission, decreased to 1.45 on 06/15 Continue to monitor See fluids below Avoid nephrotoxic agents, avoid NSAIDs Continue home diuretics; Lasix 40 PO daily, Spironolactone 25mg daily, consider adjusting if creatinine remains elevated (4) Elevated lactic acid level ICD Codes: R79.89 - Other specified abnormal findings of blood chemistry Status: Resolved Plan: Elevated lactic acid on admission of 12.7 May be due to lack of tissue perfusion Repeat lactic acid 2.7, 2.4 down trending Will recheck to ensure this has returned to normal (5) Atrial fibrillation ICD Codes: I48.91 - Unspecified atrial fibrillation Status: Chronic Plan: Chronic atrial fibrillation & SVT, with Xarelto anticoagulation Continue Digoxin, will use IV until after GI intervention Hold Xarelto Status post K Centra INR 1.5 on 06/15 (6) Fall ICD Codes: W19.XXXA - Unspecified fall, initial encounter Status: Acute Plan: Likely due to weakness and anemia. PT to evaluate patient. Follow-up H&H Follow-up blood culture Follow-up urine culture Chest x-ray within normal limits f/u BMP and electrolytes in AM (7) fen/px Status: Acute Plan: Fluids: Continue normal saline at 100mls/hr for BETI, continue home diuretics and caution with overhydration Electrolytes: BMP within normal limits, continue to monitor Nutrition: Liquid diet per GI GI prophylaxis: Pantoprazole DVT prophylaxis: SCDs, JOSE RAFAEL fisher. Chemoprophylaxis held due to concern for GI bleed. (Magalys Prince MD R3) Magalys Prince MD R3 Jun 15, 2017 14:15 Ángel Bradford MD Jun 16, 2017 12:33
[2017-06-15 14:27] LABS: HEMATOCRIT 27.9 % (39.0-51.0); HEMOGLOBIN 9.4 GM/DL (13.0-17.0)
--- NOTE | 2017-06-15 16:02 | EKG ---
Date Performed: 06/14/2017 Time Performed: 16:00:13 PTAGE: 86 years EKG: ATRIAL FIBRILLATION WITH ABERRANT CONDUCTION OR VENTRICULAR PREMATURE COMPLEXES POSSIBLE RI GHT VENTRICULAR CONDUCTION DELAY ST DEVIATION AND MODERATE T-WAVE ABNORMALITY, CONSIDER LATERAL ISCHE NOLAN Compared to previous tracing the ST-T changes are more pominent, consider ischemia ABNORMAL ECG PREVIOUS TRACING : 05/13/2017 13.55 DOCTOR: Nathan Lacey Interpretating Date/Time 06/15/2017 16:01:15
[2017-06-15] MEDS ORDERED: POTASSIUM CHLORIDE 10 MEQ CONTROLLED RELEASE TAB PO ONE (16:45)
--- NOTE | 2017-06-15 17:34 | PD.CARD.PN ---
Subjective Subjective Remarks No complaints, feeling better, hemodynamically stable, no SOB, HR decreasing while sleeping, no further hematochezia (Nicolle Alvarado) Subjective Remarks The exam, history, and the medical decision-making described in the above note were completed with the assistance of the mid-level provider. I reviewed and agree with the findings presented. I attest that I had a [id number] encounter with the patient on the same day, and personally performed and documented my assessment and findings in the medical record. Overall more stable no more bleeding. Slow improvement. (Candi Dean MD) Objective Medications Current Medications Medications (Trade) Dose Ordered Sig/Khadra Route Start Time Stop Time Status Last Admin (NS Flush) 2 ml UNSCH PRN IVF 06/14/17 11:30 (Lanoxin) 0.125 mg DAILY PO 06/14/17 14:30 Future Hold 06/14/17 16:58 (Lasix) 40 mg DAILY PO 06/14/17 14:30 06/14/17 16:59 (KCl) 20 meq DAILY PO 06/14/17 14:30 06/14/17 16:59 (Aldactone) 25 mg DAILY PO 06/14/17 14:30 06/14/17 16:59 (Tylenol) 650 mg Q4H PRN PO 06/14/17 14:45 (Zofran Inj) 4 mg Q6H PRN IVP 06/14/17 14:45 (Restoril) 15 mg HS PRN PO 06/14/17 14:45 (Narcan Inj) 0.4 mg UNSCH PRN IV PUSH 06/14/17 14:45 (Milk Of Magnesia Liq) 30 ml Q12H PRN PO 06/14/17 14:45 (Senokot) 17.2 mg Q12H PRN PO 06/14/17 14:45 (Dulcolax Supp) 10 mg DAILY PRN RECTAL 06/14/17 14:45 (Lactulose Liq) 30 ml DAILY PRN PO 06/14/17 14:45 Sodium Chloride 1,000 ml @ 100 mls/hr Q10H IV 06/14/17 15:45 06/15/17 11:45 (Protonix Inj) 40 mg Q12HR IV PUSH 06/14/17 21:00 06/15/17 09:15 Miscellaneous Information Patient in critical care unit? Ass... Q361D .XX 06/14/17 20:45 (Chlorhexidine 2% Cloth) 3 pack DAILY@04 TOPICAL 06/15/17 04:00 06/19/17 04:01 06/15/17 04:12 (Chlorhexidine 2% Cloth) 3 pack UNSCH PRN TOPICAL 06/14/17 20:45 06/19/17 20:41 (Lanoxin Inj) 0.125 mg DAILY IV PUSH 06/16/17 09:00 Vital Signs / I&O Vital Signs Date Time Temp Pulse Resp B/P (MAP) Pulse Ox O2 Delivery O2 Flow Rate FiO2 06/15/17 16:00 63 06/15/17 16:00 97.6 111 20 136/63 (87) 95 06/15/17 14:00 62 06/15/17 12:00 68 06/15/17 12:00 97.7 68 11 141/67 (91) 99 06/15/17 10:00 71 06/15/17 08:00 71 06/15/17 08:00 98.2 71 14 133/62 (85) 99 06/15/17 06:00 67 06/15/17 04:00 70 06/15/17 04:00 98.8 70 14 115/56 (75) 99 06/15/17 02:00 84 06/15/17 01:52 99.1 80 16 137/60 100 06/15/17 00:00 80 06/15/17 00:00 98.6 80 14 130/62 (84) 100 06/14/17 22:13 98.5 83 14 152/68 100 06/14/17 22:00 82 06/14/17 21:58 98.7 84 22 153/67 100 06/14/17 21:14 98.3 84 16 150/63 (92) 100 06/14/17 21:13 84 06/14/17 20:16 06/14/17 19:45 75 18 140/61 (87) 100 Room Air 06/14/17 18:19 98.3 88 17 139/60 (86) 100 Room Air I/O 06/14/17 06/14/17 06/14/17 06/15/17 06/15/17 06/15/17 07:00 15:00 23:00 07:00 15:00 23:00 Intake Total 1210 ml 1060 ml Output Total 1950 ml Balance 1210 ml -890 ml Intake Oral 240 ml IV Total 350 ml Packed Cells 800 ml 800 ml Blood Product IV Normal Saline Flush 60 ml 20 ml Output Urine Total 1950 ml # Bowel Movements 0 Physical Exam GENERAL: Elderly male, awakens easily, pallor SKIN: Warm and dry. HEAD: Normocephalic. EYES: No scleral icterus. No injection or drainage. NECK: Supple, trachea midline. CARDIOVASCULAR: Regular rate and rhythm RESPIRATORY: Breath sounds equal bilaterally. No accessory muscle use. GASTROINTESTINAL: Abdomen soft, non-tender, nondistended. MUSCULOSKELETAL: No cyanosis, or edema. BACK: Nontender without obvious deformity. Laboratory Laboratory Tests Test 06/14/17 18:15 06/14/17 20:30 06/14/17 21:40 06/15/17 00:30 Urine Color YELLOW Urine Turbidity CLEAR Urine pH 5.0 Urine Specific [place] 1.016 Urine Protein NEG mg/dL Urine Glucose (UA) NEG mg/dL Urine Ketones NEG mg/dL Urine Occult Blood NEG Urine Nitrite NEG Urine Bilirubin NEG Urine Urobilinogen LESS THAN 2.0 MG/DL Urine Leukocyte Esterase NEG Urine RBC 8 /hpf Urine WBC 1 /hpf Urine Bacteria RARE /hpf Urine Hyaline Casts 20 /lpf Urine Mucus FEW /lpf Microscopic Urinalysis Comment CULT NOT INDICATED Nasal Screen MRSA (PCR) MRSA NOT DETECTED Lactic Acid Level 2.7 mmol/L 2.4 mmol/L Test 06/15/17 07:30 06/15/17 14:06 White Blood Count 6.7 TH/MM3 Red Blood Count 3.63 MIL/MM3 Hemoglobin 10.1 GM/DL 9.4 GM/DL Hematocrit 29.1 % 27.9 % Mean Corpuscular Volume 80.2 FL Mean Corpuscular Hemoglobin 27.9 PG Mean Corpuscular Hemoglobin Concent 34.8 % Red Cell Distribution Width 19.0 % Platelet Count 174 TH/MM3 Mean Platelet Volume 8.4 FL Neutrophils (%) (Auto) 65.8 % Lymphocytes (%) (Auto) 20.8 % Monocytes (%) (Auto) 12.6 % Eosinophils (%) (Auto) 0.4 % Basophils (%) (Auto) 0.4 % Neutrophils # (Auto) 4.4 TH/MM3 Lymphocytes # (Auto) 1.4 TH/MM3 Monocytes # (Auto) 0.8 TH/MM3 Eosinophils # (Auto) 0.0 TH/MM3 Basophils # (Auto) 0.0 TH/MM3 CBC Comment AUTO DIFF Differential Total Cells Counted 100 Neutrophils % (Manual) 73 % Band Neutrophils % 1 % Lymphocytes % 18 % Monocytes % 6 % Eosinophils % 1 % Neutrophils # (Manual) 5.0 TH/MM3 Metamyelocytes 1 % Nucleated Red Blood Cells 7 /100 WBC Differential Comment FINAL DIFF MANUAL Platelet Estimate NORMAL Platelet Morphology Comment NORMAL Prothrombin Time 15.5 SEC Prothromb Time International Ratio 1.5 RATIO Activated Partial Thromboplast Time 30.1 SEC Fibrinogen 167 mg/dL Blood Urea Nitrogen 46 MG/DL Creatinine 1.45 MG/DL Random Glucose 99 MG/DL Calcium Level 7.8 MG/DL Phosphorus Level 3.8 MG/DL Magnesium Level 2.3 MG/DL Sodium Level 142 MEQ/L Potassium Level 3.2 MEQ/L Chloride Level 105 MEQ/L Carbon Dioxide Level 27.0 MEQ/L Anion Gap 10 MEQ/L Estimat Glomerular Filtration Rate 46 ML/MIN Ammonia 66 MCMOL/L Imaging Last 72 hours Impressions Chest X-Ray 06/14/17 0000 Signed Impressions: Service Date/Time: Wednesday, June 14, 2017 13:21 - CONCLUSION: No acute disease. Compensated left ventricular cardiomegaly Haja Chavis MD (Nicolle Alvarado) Assessment and Plan Assessment and Plan 1. Lower GI bleeding. 2. Severe anemia. 3. Chronic atrial fibrillation. 4. Anticoagulation PLAN: Endoscopy and colonoscopy planned for saturday Continue to hold The patient was seen and evaluated by Dr Dean who completed physical exam and face to face encounter and participated in evaluation and management (Nicolle Alvarado) Nicolle Alvarado Jun 15, 2017 17:34 Candi Dean MD Jun 15, 2017 17:47
[2017-06-15 21:38] LABS: HEMATOCRIT 27.4 % (39.0-51.0); HEMOGLOBIN 9.1 GM/DL (13.0-17.0)
[2017-06-16] VITALS (27 sets, daily range): BP systolic 122–155; BP diastolic 66–86; PULSE 58–87; RESP 16–18; TEMP 97.4–98.4; O2SAT 95–99
[2017-06-16] MEDS: CHLORHEXIDINE GLUCONATE 2 % 1 PACK (2 CLOTHS)(taper/protocol) TOPICAL SCH (04:00)
[2017-06-16 05:23] LABS: INTERNATIONAL NORMALIZED RATIO 1.5 RATIO; PROTHROMBIN TIME - PATIENT 15.4 SEC (9.8-11.6)
[2017-06-16 05:27] LABS: BICARBONATE 22.4 MEQ/L (21.0-32.0); CALCIUM 7.1 MG/DL (8.5-10.1); CREATININE 0.88 MG/DL (0.60-1.30)
[2017-06-16 05:42] LABS: CALCIUM-PROTEIN CORRECTED 8.5 MG/DL (8.5-10.1); TOTAL PROTEIN 4.5 GM/DL (6.4-8.2)
[2017-06-16 06:13] LABS: HEMATOCRIT 26.1 % (39.0-51.0); MEAN CELL VOLUME 83.8 FL (80.0-100.0); MEAN CORPUSCULAR HEMOGLOBIN 28.8 PG (27.0-34.0); MEAN CORPUSCULAR HGB CONC 34.4 % (32.0-36.0); MEAN PLATELET VOLUME 8.7 FL (7.0-11.0); PLATELET COUNT 123 TH/MM3 (150-450); RED BLOOD COUNT 3.12 MIL/MM3 (4.50-5.90); RED CELL DISTRIBUTION WIDTH 19.6 % (11.6-17.2); WHITE BLOOD COUNT 7.2 TH/MM3 (4.0-11.0)
[2017-06-16] MEDS: SODIUM CHLOR 0.9% 1000 ML INJ 1,000 ML IV SCH ×2 (09:07→18:08)
--- NOTE | 2017-06-16 09:31 | PD.CARD.PN ---
Subjective Subjective Remarks The exam, history, and the medical decision-making described in the above note were completed with the assistance of the mid-level provider. I reviewed and agree with the findings presented. I attest that I had a [id number] encounter with the patient on the same day, and personally performed and documented my assessment and findings in the medical record. Overall more stable no more bleeding. Slow improvement. Objective Medications Current Medications Medications (Trade) Dose Ordered Sig/Khadra Route Start Time Stop Time Status Last Admin (NS Flush) 2 ml UNSCH PRN IVF 06/14/17 11:30 (Lanoxin) 0.125 mg DAILY PO 06/14/17 14:30 Future Hold 06/14/17 16:58 (Lasix) 40 mg DAILY PO 06/14/17 14:30 06/14/17 16:59 (KCl) 20 meq DAILY PO 06/14/17 14:30 06/14/17 16:59 (Aldactone) 25 mg DAILY PO 06/14/17 14:30 06/14/17 16:59 (Tylenol) 650 mg Q4H PRN PO 06/14/17 14:45 (Zofran Inj) 4 mg Q6H PRN IVP 06/14/17 14:45 (Restoril) 15 mg HS PRN PO 06/14/17 14:45 (Narcan Inj) 0.4 mg UNSCH PRN IV PUSH 06/14/17 14:45 (Milk Of Magnesia Liq) 30 ml Q12H PRN PO 06/14/17 14:45 (Senokot) 17.2 mg Q12H PRN PO 06/14/17 14:45 (Dulcolax Supp) 10 mg DAILY PRN RECTAL 06/14/17 14:45 (Lactulose Liq) 30 ml DAILY PRN PO 06/14/17 14:45 Sodium Chloride 1,000 ml @ 100 mls/hr Q10H IV 06/14/17 15:45 06/16/17 09:07 (Protonix Inj) 40 mg Q12HR IV PUSH 06/14/17 21:00 06/15/17 21:45 Miscellaneous Information Patient in critical care unit? Ass... Q361D .XX 06/14/17 20:45 (Chlorhexidine 2% Cloth) 3 pack DAILY@04 TOPICAL 06/15/17 04:00 06/19/17 04:01 06/15/17 04:12 (Chlorhexidine 2% Cloth) 3 pack UNSCH PRN TOPICAL 06/14/17 20:45 06/19/17 20:41 (Lanoxin Inj) 0.125 mg DAILY IV PUSH 06/16/17 09:00 Vital Signs / I&O Vital Signs Date Time Temp Pulse Resp B/P (MAP) Pulse Ox O2 Delivery O2 Flow Rate FiO2 06/16/17 07:21 97.9 67 16 150/77 (101) 99 06/16/17 04:00 71 06/16/17 03:00 62 06/16/17 02:00 59 06/16/17 01:00 58 06/16/17 00:00 60 06/15/17 23:13 98.1 60 20 123/61 (81) 99 06/15/17 20:14 98.4 64 20 142/67 (92) 100 06/15/17 20:02 99 21 06/15/17 18:00 70 06/15/17 16:00 63 06/15/17 16:00 97.6 111 20 136/63 (87) 95 06/15/17 14:00 62 06/15/17 12:00 68 06/15/17 12:00 97.7 68 11 141/67 (91) 99 06/15/17 10:00 71 I/O 06/15/17 06/15/17 06/15/17 06/16/17 06/16/17 06/16/17 07:00 15:00 23:00 07:00 15:00 23:00 Intake Total 1060 ml 1000 ml 180 ml 1040 ml Output Total 1950 ml 650 ml 500 ml Balance -890 ml 1000 ml -470 ml 540 ml Intake Oral 240 ml 180 ml 240 ml IV Total 1000 ml 800 ml Packed Cells 800 ml Blood Product IV Normal Saline Flush 20 ml Output Urine Total 1950 ml 650 ml 500 ml # Bowel Movements 0 0 0 Physical Exam GENERAL: Well-nourished, well-developed patient in no apparent distress. SKIN: Warm and dry. NECK: JVD normal - less than or equal to 5 cm H20. CARDIOVASCULAR: AFIB without murmurs, gallops or rubs. RESPIRATORY: Normal breath sounds - equal bilaterally. No accessory muscle use. No wheezes, rales or rubs. PERIPHERY: No cyanosis or edema. Laboratory Laboratory Tests Test 06/15/17 14:06 06/15/17 21:32 06/16/17 04:10 06/16/17 04:15 Hemoglobin 9.4 GM/DL 9.1 GM/DL 9.0 GM/DL Hematocrit 27.9 % 27.4 % 26.1 % Lactic Acid Level 1.5 mmol/L Prothrombin Time 15.4 SEC Prothromb Time International Ratio 1.5 RATIO White Blood Count 7.2 TH/MM3 Red Blood Count 3.12 MIL/MM3 Mean Corpuscular Volume 83.8 FL Mean Corpuscular Hemoglobin 28.8 PG Mean Corpuscular Hemoglobin Concent 34.4 % Red Cell Distribution Width 19.6 % Platelet Count 123 TH/MM3 Mean Platelet Volume 8.7 FL Blood Urea Nitrogen 36 MG/DL Creatinine 0.88 MG/DL Random Glucose 80 MG/DL Total Protein 4.5 GM/DL Calcium Level 7.1 MG/DL Sodium Level 146 MEQ/L Potassium Level 3.6 MEQ/L Chloride Level 116 MEQ/L Carbon Dioxide Level 22.4 MEQ/L Anion Gap 8 MEQ/L Estimat Glomerular Filtration Rate 82 ML/MIN Protein Corrected Calcium 8.5 MG/DL Assessment and Plan Assessment and Plan Stable not bleeding for w/u HR stable Candi Dean MD Jun 16, 2017 09:31
--- NOTE | 2017-06-16 09:44 | HHI.FPPN ---
Subjective Remarks Patient seen and examined bedside this morning. Patient has been eating and drinking without difficulty. He has not had anymore episodes of diarrhea, with no visible blood. He denies any chest pain/shortness of breath/dizziness. He continues to feel chilly and he is using multiple blankets in the room and his temperature has been normal. (Fay Dillard MD R2) Objective Vitals Vital Signs Date Time Temp Pulse Resp B/P (MAP) Pulse Ox O2 Delivery O2 Flow Rate FiO2 06/16/17 07:21 97.9 67 16 150/77 (101) 99 06/16/17 04:00 71 06/16/17 03:00 62 06/16/17 02:00 59 06/16/17 01:00 58 06/16/17 00:00 60 06/15/17 23:13 98.1 60 20 123/61 (81) 99 06/15/17 20:14 98.4 64 20 142/67 (92) 100 06/15/17 20:02 99 21 06/15/17 18:00 70 06/15/17 16:00 63 06/15/17 16:00 97.6 111 20 136/63 (87) 95 06/15/17 14:00 62 06/15/17 12:00 68 06/15/17 12:00 97.7 68 11 141/67 (91) 99 06/15/17 10:00 71 I/O 06/15/17 06/15/17 06/15/17 06/16/17 06/16/17 06/16/17 07:00 15:00 23:00 07:00 15:00 23:00 Intake Total 1060 ml 1000 ml 180 ml 1040 ml Output Total 1950 ml 650 ml 500 ml Balance -890 ml 1000 ml -470 ml 540 ml Intake Oral 240 ml 180 ml 240 ml IV Total 1000 ml 800 ml Packed Cells 800 ml Blood Product IV Normal Saline Flush 20 ml Output Urine Total 1950 ml 650 ml 500 ml # Bowel Movements 0 0 0 (Fay Dillard MD R2) Result Diagram: 06/16/1741406/16/17414 Objective Remarks GENERAL: Thin elderly male, in no apparent distress. SKIN: Cool and dry. HEAD: Atraumatic. Normocephalic. EYES: Extraocular motions intact. No scleral icterus. No injection or drainage. ENT: Nose without bleeding, purulent drainage or septal hematoma. Airway patent. CARDIOVASCULAR: Irregularly irregular, no murmurs rubs or gallops. RESPIRATORY: Clear to auscultation. Breath sounds equal bilaterally. No wheezes , rales, or rhonchi. GASTROINTESTINAL: Abdomen soft, non-tender, nondistended. No hepato-splenomegaly , or palpable masses. No guarding. MUSCULOSKELETAL: Extremities without clubbing, cyanosis, or edema. No joint tenderness, effusion, or edema noted. No calf tenderness. Negative Homans sign bilaterally. NEUROLOGICAL: Awake and alert. Normal speech. (Fay Dillard MD R2) A/P Assessment and Plan 86-year-old male, on chronic anticoagulation for atrial fibrillation, presents with 2 weeks of weakness and fatigue, bright red blood per rectum, and hemoglobin of 4.1. Patient admitted for transfusion, anticoagulation reversal, and GI evaluation. Discharge Planning Anticipate discharge once anemia has resolved and patient has been cleared by GI. Likely 1-2 days. (Fay Dillard MD R2) Assessment and Plan Attending note: Patient seen and examined . Case reviewed and discussed with the resident team. Agree with plan of care as discussed with me and documented in the resident note. Daughter and at bedside. Doing well, much more interactive, plans for EGD and colonoscopy on 06/17/17. (Ángel Bradford MD) Problem List: (1) Acute blood loss anemia ICD Codes: D62 - Acute posthemorrhagic anemia Status: Acute Plan: Acute anemia, bright red blood per rectum, hemodynamically stable INR 2.2, Xarelto reversed Cleared for endoscopy by Cardio Symptoms 2 weeks, hemoglobin of 4.1 on admission Transfuse 4 units PRBCs Posttransfusion H&H: 10.1/29.1 H&H trend: 10.1, 9.4, 9.1, 9.0 table eyes Continue to monitor for signs of blood loss Appreciate GI recs and intervention: Plan for EGD and colonoscopy on Saturday (2) GI bleed ICD Codes: K92.2 - Gastrointestinal hemorrhage, unspecified Status: Acute Plan: See plan under anemia (3) Acute kidney injury ICD Codes: N17.9 - Acute kidney failure, unspecified Status: Resolved Plan: History of BPH Unknown baseline creatinine Resolved Creatinine 1.89 on admission, decreased to 0.88 today Continue to monitor See fluids below Avoid nephrotoxic agents, avoid NSAIDs Continue home diuretics; Lasix 40 PO daily, Spironolactone 25mg daily, consider adjusting if creatinine remains elevated (4) Elevated lactic acid level ICD Codes: R79.89 - Other specified abnormal findings of blood chemistry Status: Resolved Plan: Elevated lactic acid on admission of 12.7 May be due to lack of tissue perfusion Resolved Repeat lactic acid 2.7, 2.4, 1.5 (5) Atrial fibrillation ICD Codes: I48.91 - Unspecified atrial fibrillation Status: Chronic Plan: Chronic atrial fibrillation & SVT, with Xarelto anticoagulation Continue Digoxin, will use IV until after GI intervention Hold Xarelto Status post K Centra INR 2.2 on 06/14 INR 1.3 on 06/15 (6) Fall ICD Codes: W19.XXXA - Unspecified fall, initial encounter Status: Acute Plan: Likely due to weakness and anemia. PT to evaluate patient. Follow-up H&H Follow-up blood culture Follow-up urine culture Chest x-ray within normal limits f/u BMP and electrolytes in AM (7) fen/px Status: Acute Plan: Fluids: Continue normal saline at 100mls/hr for BETI, continue home diuretics and caution with overhydration Electrolytes: BMP within normal limits, continue to monitor Nutrition: Liquid diet per GI GI prophylaxis: Pantoprazole DVT prophylaxis: JOSE RAFAEL Roach. Chemoprophylaxis held due to concern for GI bleed. (Fay Dillard MD R2) Fay Dillard MD R2 Jun 16, 2017 09:44 Ángel Bradford MD Jun 16, 2017 12:34
[2017-06-16] MEDS: SPIRONOLACTONE 25 MG TAB PO SCH (10:09)
[2017-06-16] MEDS: FUROSEMIDE 40 MG TAB PO SCH (10:10)
[2017-06-16] MEDS: POTASSIUM CHLORIDE 10 MEQ CONTROLLED RELEASE TAB PO SCH (10:10)
[2017-06-16] MEDS: PANTOPRAZOLE SODIUM 40 MG VIAL IV PUSH SCH ×2 (10:11→21:24)
[2017-06-16] MEDS: DIGOXIN 0.5 MG/2 ML VIAL IV PUSH SCH (10:12)
--- NOTE | 2017-06-16 13:27 | HHI.GIFU ---
GI Follow-up Note Consult Follow-up Subjective: Patient laying in bed comfortably, no new complaints and no BM since Saturday. Objective: PHYSICAL EXAMINATION: Vitals signs stable No fever CHEST: Chest is clear to auscultation CARDIAC: Afib ABDOMEN: Soft, nondistended, nontender EXTREMITIES: No clubbing, cyanosis, or edema. SKIN: warm and dry. RN PATIENT SERVICES: alert and oriented Available Data (labs, X- Rays, Procedues) : Laboratory Tests Test 06/14/17 11:48 06/14/17 13:00 06/14/17 15:17 06/14/17 18:15 Red Blood Count 1.60 MIL/MM3 (4.50-5.90) Hemoglobin 4.1 GM/DL (13.0-17.0) Hematocrit 14.0 % (39.0-51.0) Mean Corpuscular Hemoglobin 25.8 PG (27.0-34.0) Mean Corpuscular Hemoglobin Concent 29.4 % (32.0-36.0) Red Cell Distribution Width 19.7 % (11.6-17.2) Neutrophils (%) (Auto) 75.8 % (16.0-70.0) Lymphocytes # (Auto) 0.9 TH/MM3 (1.0-4.8) Neutrophils % (Manual) 76 % (16-70) Nucleated Red Blood Cells 4 /100 WBC (0-0) Prothrombin Time 22.7 SEC (9.8-11.6) Blood Urea Nitrogen 49 MG/DL (7-18) Creatinine 1.89 MG/DL (0.60-1.30) Random Glucose 169 MG/DL (74-106) Total Protein 6.0 GM/DL (6.4-8.2) Albumin 3.0 GM/DL (3.4-5.0) Calcium Level 8.3 MG/DL (8.5-10.1) Carbon Dioxide Level 13.9 MEQ/L (21.0-32.0) Anion Gap 21 MEQ/L (5-15) Estimat Glomerular Filtration Rate 34 ML/MIN (>89) B-Type Natriuretic Peptide 291 PG/ML (0-100) Lactic Acid Level 12.7 mmol/L (0.4-2.0) Arterial Blood pH 7.57 (7.380-7.420) Arterial Blood Partial Pressure CO2 23 mmHg (38-42) Arterial Blood Oxygen Content 6.2 Vol % (12.0-20.0) Blood Gas Hemoglobin 4.4 G/DL (12.0-16.0) Urine RBC 8 /hpf (0-3) Urine Bacteria RARE /hpf (NONE) Urine Mucus FEW /lpf (OCC) Test 06/14/17 20:30 06/14/17 21:40 06/15/17 00:30 06/15/17 07:30 Lactic Acid Level 2.7 mmol/L (0.4-2.0) 2.4 mmol/L (0.4-2.0) Red Blood Count 3.63 MIL/MM3 (4.50-5.90) Hemoglobin 10.1 GM/DL (13.0-17.0) Hematocrit 29.1 % (39.0-51.0) Red Cell Distribution Width 19.0 % (11.6-17.2) Monocytes (%) (Auto) 12.6 % (0.0-8.0) Neutrophils % (Manual) 73 % (16-70) Nucleated Red Blood Cells 7 /100 WBC (0-0) Prothrombin Time 15.5 SEC (9.8-11.6) Fibrinogen 167 mg/dL (227-377) Blood Urea Nitrogen 46 MG/DL (7-18) Creatinine 1.45 MG/DL (0.60-1.30) Calcium Level 7.8 MG/DL (8.5-10.1) Potassium Level 3.2 MEQ/L (3.5-5.1) Estimat Glomerular Filtration Rate 46 ML/MIN (>89) Ammonia 66 MCMOL/L (11-32) Test 06/15/17 14:06 06/15/17 21:32 06/16/17 04:10 06/16/17 04:15 Hemoglobin 9.4 GM/DL (13.0-17.0) 9.1 GM/DL (13.0-17.0) 9.0 GM/DL (13.0-17.0) Hematocrit 27.9 % (39.0-51.0) 27.4 % (39.0-51.0) 26.1 % (39.0-51.0) Prothrombin Time 15.4 SEC (9.8-11.6) Red Blood Count 3.12 MIL/MM3 (4.50-5.90) Red Cell Distribution Width 19.6 % (11.6-17.2) Platelet Count 123 TH/MM3 (150-450) Blood Urea Nitrogen 36 MG/DL (7-18) Total Protein 4.5 GM/DL (6.4-8.2) Calcium Level 7.1 MG/DL (8.5-10.1) Sodium Level 146 MEQ/L (136-145) Chloride Level 116 MEQ/L (98-107) Estimat Glomerular Filtration Rate 82 ML/MIN (>89) ASSESSMENT/PLAN: 1. GI Bleed-stable. and daughter at bedside. Will prep for EGD and colonoscopy scheduled for 0800 tomorrow. It was a pleasure seeing Alban Moran Thank you for this consult. Entered by: Mark Anthony Zavala MD Jun 16, 2017 13:27
[2017-06-16] MEDS ORDERED: PEG (High)/E-LYTE SOLN 4000 ML BTL PO ONE (16:00)
[2017-06-17] VITALS (27 sets, daily range): BP systolic 130–162; BP diastolic 60–78; PULSE 46–98; RESP 16–18; TEMP 97.4–98.3; O2SAT 98–99
[2017-06-17] MEDS: SODIUM CHLOR 0.9% 1000 ML INJ 1,000 ML IV SCH ×3 (03:45→23:45)
[2017-06-17] MEDS: CHLORHEXIDINE GLUCONATE 2 % 1 PACK (2 CLOTHS)(taper/protocol) TOPICAL SCH (04:00)
[2017-06-17 05:05] LABS: AUTOMATED NEUTROPHIL # 5.3 TH/MM3 (1.8-7.7); BASOPHIL % 0.4 % (0.0-2.0); EOSINOPHIL % 0.7 % (0.0-4.0); HEMOGLOBIN 9.4 GM/DL (13.0-17.0); LYMPH % 17.5 % (9.0-44.0); LYMPHOCYTE # 1.3 TH/MM3 (1.0-4.8); MEAN CELL VOLUME 82.4 FL (80.0-100.0); MEAN CORPUSCULAR HEMOGLOBIN 26.8 PG (27.0-34.0); MEAN CORPUSCULAR HGB CONC 32.5 % (32.0-36.0); MEAN PLATELET VOLUME 8.3 FL (7.0-11.0); MONO % 7.7 % (0.0-8.0); MONOCYTE # 0.6 TH/MM3 (0-0.9); NEUT % 73.7 % (16.0-70.0); PLATELET COUNT 166 TH/MM3 (150-450); RED BLOOD COUNT 3.52 MIL/MM3 (4.50-5.90); WHITE BLOOD COUNT 7.3 TH/MM3 (4.0-11.0)
[2017-06-17 05:28] LABS: BICARBONATE 23.3 MEQ/L (21.0-32.0); CALCIUM 7.5 MG/DL (8.5-10.1); CREATININE 1.01 MG/DL (0.60-1.30)
[2017-06-17] MEDS ORDERED: PROPOFOL 200 MG/20 ML AMP ONE (07:03)
--- NOTE | 2017-06-17 08:37 | GIPROC ---
[facility] [address] [facility]. [facility], [address] EGD PROCEDURE REPORT EXAM DATE: 06/17/2017 PATIENT NAME: Alban Moran MR #: [id number] BIRTHDATE: 1930 ATTENDING: Mark Anthony Bales MD ORDER #: [id number] MACHINIST SUPERVISOR: Eveline Graves and Saundra Sarabia STATUS: inpatient INDICATIONS: The patient is a 86 yr old male here for an EGD due to melena PROCEDURE PERFORMED: EGD, diagnostic MEDICATIONS: None and Per Anesthesia. TOPICAL ANESTHETIC: none CONSENT: The patient understands the risks and benefits of the procedure and understands that these risks include, but are not limited to: sedation, allergic reaction, infection, perforation and/or bleeding. Alternative means of evaluation and treatment include, among others: physical exam, x-rays, and/or surgical intervention. The patient elects to proceed with this endoscopic procedure. medical equipment was checked for proper function. Hand hygiene and appropriate measures for infection prevention was taken. After the risks, benefits and alternatives of the procedure were thoroughly explained, Informed consent was verified, confirmed and timeout was successfully executed by the treatment team. The patient was anesthetized with topical anesthesia and the Pentax [id number] endoscope was introduced through the mouth and advanced to the second portion of the duodenum. Retroflexion was performed and was normal The gastroscope was then slowly withdrawn and removed. ESOPHAGUS: The mucosa of the esophagus appeared normal. STOMACH: A few small semi-pedunculated polyps, ranging between 3-5mm in size, were found. DUODENUM: The duodenal mucosa appeared normal. ADVERSE EVENTS: There were no complications. IMPRESSIONS: 1. The esophagus appeared normal 2. Few small semi-pedunculated polyps, ranging between 3-5mm in size, were found 3. Normal duodenal mucosa 4. Retroflexion was performed and was normal RECOMMENDATIONS: Colonoscopy PATIENT CONDITION: stable DISPOSITION: Inpatient REPEAT EXAM: NONE Mark Anthony Bales MD eSigned: Mark Anthony Bales MD 06/17/2017 8:36 AM cc: Ángel Bradford M.D. PATIENT NAME: Alban Moran MR#: [id number]
--- NOTE | 2017-06-17 08:42 | GIPROC ---
[facility] [address] [facility]. [facility], [address] COLONOSCOPY PROCEDURE REPORT EXAM DATE: 06/17/2017 PATIENT NAME: Alban Moran MR #: [id number] BIRTHDATE: 1930 ENDOSCOPIST: Mark Anthony Bales MD ORDER #: [id number] CREATIVE CONSULTANT: Saundra Sarabia and Eveline Graves STATUS: inpatient INDICATIONS: The patient is a 86 yr old male here for a colonoscopy due to melena PROCEDURE PERFORMED: Colonoscopy with polypectomy MEDICATIONS: None and Per Anesthesia. PREP QUALITY: good PREP TYPE:GoLytely ESTIMATED BLOOD LOSS: None CONSENT: The patient understands the risks and benefits of the procedure and understands that these risks include, but are not limited to: sedation, allergic reaction, infection, perforation and/or bleeding. Alternative means of evaluation and treatment include, among others: physical exam, x-rays, and/or surgical intervention. The patient elects to proceed with this endoscopic procedure. medical equipment was checked for proper function. Hand hygiene and appropriate measures for infection prevention was taken. After the risks, benefits and alternatives of the procedure were thoroughly explained, Informed consent was verified, confirmed and timeout was successfully executed by the treatment team. A digital exam was performed and revealed no abnormalities of the rectum The Pentax [id number] endoscope was introduced through the anus and advanced to the cecum, which was identified by both the appendix and ileocecal valve. The instrument was then slowly withdrawn as the colon was fully examined. COLON FINDINGS: A sessile polyp measuring 6 mm in size was found at the cecum. A polypectomy was performed using snare cautery. The resection was complete and the polyp tissue was completely retrieved. Moderate diverticulosis was noted in the transverse colon, descending colon, and sigmoid colon. Retroflexion was performed and was normal The scope was then completely withdrawn from the patient and the procedure terminated. PROCEDURE WITHDRAWAL TIME:10minutes ADVERSE EVENTS: There were no complications. IMPRESSIONS: 1. A sessile polyp was found at the cecum; polypectomy was performed using snare cautery 2. Moderate diverticulosis was noted in the transverse colon, descending colon, and sigmoid colon 3. Retroflexion was performed and was normal 4. Was performed 5. Revealed no abnormalities of the rectum RECOMMENDATIONS: 1. Await biopsy results. Biopsy results will not be ready for 7-10 days. If you don't hear from us in two weeks, call our office for results. 2. High fiber diet RECALL: NONE Mark Anthony Bales MD eSigned: Mark Anthony Bales MD 06/17/2017 8:42 AM cc: Ángel Bradford M.D. PATIENT NAME: Alban Moran Dilia MR#: [id number]
[2017-06-17] MEDS: DIGOXIN 0.5 MG/2 ML VIAL IV PUSH SCH (09:00)
[2017-06-17] MEDS: PANTOPRAZOLE SODIUM 40 MG VIAL IV PUSH SCH (10:05)
[2017-06-17] MEDS: SPIRONOLACTONE 25 MG TAB PO SCH (10:05)
[2017-06-17] MEDS: FUROSEMIDE 40 MG TAB PO SCH (10:07)
[2017-06-17] MEDS: POTASSIUM CHLORIDE 10 MEQ CONTROLLED RELEASE TAB PO SCH ×3 (10:07→18:07)
--- NOTE | 2017-06-17 12:09 | HHI.FPPN ---
Subjective Remarks Patient seen and examined this morning after his colonoscopy. Patient states he has had no pain or, patient's mental colonoscopy. He is resting and feels well. Denies any nausea/vomiting. Denies any chest pain/chest breath/dizziness. He is okay with the plan of staying 1 more night and discharging to a rehabilitation facility tomorrow. Objective Vitals Vital Signs Date Time Temp Pulse Resp B/P (MAP) Pulse Ox O2 Delivery O2 Flow Rate FiO2 06/17/17 10:00 72 06/17/17 09:00 74 06/17/17 08:52 96.9 84 18 144/73 (96) 100 06/17/17 08:05 Nasal Cannula 06/17/17 08:00 76 06/17/17 07:36 97.8 87 18 164/74 (104) 100 06/17/17 07:00 78 06/17/17 07:00 98.3 78 16 158/70 (99) 98 06/17/17 06:06 79 06/17/17 05:00 75 06/17/17 04:18 83 06/17/17 03:55 97.4 83 18 138/67 (90) 99 06/17/17 03:00 82 06/17/17 02:00 77 06/17/17 01:00 79 06/17/17 00:00 97.5 98 18 162/72 (102) 98 06/16/17 22:00 84 06/16/17 21:00 82 06/16/17 20:15 96 21 06/16/17 20:05 97.4 84 18 155/86 (109) 99 06/16/17 20:00 73 06/16/17 19:00 84 06/16/17 18:29 80 06/16/17 18:24 96 21 06/16/17 17:28 87 06/16/17 16:04 77 06/16/17 15:42 97.9 78 16 122/75 (91) 99 06/16/17 15:00 76 06/16/17 14:00 72 06/16/17 13:00 66 I/O 06/16/17 06/16/17 06/16/17 06/17/17 06/17/17 06/17/17 07:00 15:00 23:00 07:00 15:00 23:00 Intake Total 1040 ml 820 ml 2000 ml 250 ml Output Total 500 ml 2250 ml 400 ml Balance 540 ml -1430 ml 1600 ml 250 ml Intake Oral 240 ml 820 ml 1000 ml IV Total 800 ml 1000 ml Other 250 ml Output Urine Total 500 ml 2250 ml 400 ml # Bowel Movements 0 0 3 Result Diagram: 06/17/1744906/17/17449 Objective Remarks GENERAL: Thin elderly male, in no apparent distress. SKIN: Cool and dry. HEAD: Atraumatic. Normocephalic. EYES: Extraocular motions intact. No scleral icterus. No injection or drainage. ENT: Nose without bleeding, purulent drainage or septal hematoma. Airway patent. CARDIOVASCULAR: Irregularly irregular, no murmurs rubs or gallops. RESPIRATORY: Clear to auscultation. Breath sounds equal bilaterally. No wheezes , rales, or rhonchi. GASTROINTESTINAL: Abdomen soft, non-tender, nondistended. No hepato-splenomegaly , or palpable masses. No guarding. MUSCULOSKELETAL: Extremities without clubbing, cyanosis, or edema. No joint tenderness, effusion, or edema noted. No calf tenderness. Negative Homans sign bilaterally. NEUROLOGICAL: Awake and alert. Normal speech. A/P Assessment and Plan Attending note: Patient seen and examined . Case reviewed and discussed with the resident team. Agree with plan of care as discussed with me and documented in the resident note. Daughter and at bedside. Doing well, much more interactive, plans for EGD and colonoscopy on 06/17/17. Discharge Planning Anticipate discharge once anemia has resolved and patient has been cleared by GI. Likely 1-2 days. Problem List: (1) Acute blood loss anemia ICD Codes: D62 - Acute posthemorrhagic anemia Status: Acute Plan: Acute anemia, bright red blood per rectum, hemodynamically stable INR 2.2, Xarelto reversed Cleared for endoscopy by Cardio Symptoms 2 weeks, hemoglobin of 4.1 on admission Transfuse 4 units PRBCs Posttransfusion H&H: 10.1/29.1 H&H trend: 10.1, 9.4, 9.1, 9.0, 9.4 this morning STABLE Continue to monitor for signs of blood loss Appreciate GI recs and intervention: Plan for EGD and colonoscopy results: - Sessile polyp, removed - Moderate diverticulosis and transverse colon, descending colon, sigmoid colon - Recommended high-fiber diet -EGD: semi-pedunculated polyps, ranging 3-5 mm in size (2) GI bleed ICD Codes: K92.2 - Gastrointestinal hemorrhage, unspecified Status: Acute Plan: See plan under anemia (3) Acute kidney injury ICD Codes: N17.9 - Acute kidney failure, unspecified Status: Resolved Plan: History of BPH Unknown baseline creatinine Resolved Creatinine 1.89 on admission, decreased to 1.01 today Continue to monitor See fluids below Avoid nephrotoxic agents, avoid NSAIDs Continue home diuretics; Lasix 40 PO daily, Spironolactone 25mg daily, consider adjusting if creatinine remains elevated (4) Elevated lactic acid level ICD Codes: R79.89 - Other specified abnormal findings of blood chemistry Status: Resolved Plan: Elevated lactic acid on admission of 12.7 May be due to lack of tissue perfusion Resolved Repeat lactic acid 2.7, 2.4, 1.5 (5) Atrial fibrillation ICD Codes: I48.91 - Unspecified atrial fibrillation Status: Chronic Plan: Chronic atrial fibrillation & SVT, with Xarelto anticoagulation Continue Digoxin, will use IV until after GI intervention Hold Xarelto Status post [facility] INR 2.2 on 06/14 INR 1.3 on 06/15 (6) Fall ICD Codes: W19.XXXA - Unspecified fall, initial encounter Status: Resolved Plan: Likely due to weakness and anemia. PT to evaluate patient. Follow-up H&H Follow-up blood culture Follow-up urine culture Chest x-ray within normal limits f/u BMP and electrolytes in AM (7) fen/px Status: Acute Plan: Fluids: Continue normal saline at 100mls/hr for BETI, continue home diuretics and caution with overhydration Electrolytes: BMP within normal limits, continue to monitor Nutrition: Liquid diet per GI GI prophylaxis: Pantoprazole DVT prophylaxis: SCDs, JOSE RAFAEL fisher. Chemoprophylaxis held due to concern for GI bleed. Fay Dillard MD R2 Jun 17, 2017 12:09
[2017-06-17] MEDS: CALCIUM POLYCARBOPHIL 625 MG TAB PO SCH ×2 (13:00→21:01)
[2017-06-17] MEDS: PANTOPRAZOLE SOD 40 MG DELAYED RELEASE TAB PO SCH (13:00)
--- NOTE | 2017-06-17 20:50 | PD.CARD.PN ---
Subjective Subjective Remarks No CP or SOB, tolerated endoscopy well, polyp removed, likely bleeding from diverticuli Objective Medications Current Medications Medications (Trade) Dose Ordered Sig/Khadra Route Start Time Stop Time Status Last Admin (NS Flush) 2 ml UNSCH PRN IVF 06/14/17 11:30 (Lanoxin) 0.125 mg DAILY PO 06/14/17 14:30 Future hold 06/14/17 16:58 (Lasix) 40 mg DAILY PO 06/14/17 14:30 06/17/17 10:07 (Aldactone) 25 mg DAILY PO 06/14/17 14:30 06/17/17 10:05 (Tylenol) 650 mg Q4H PRN PO 06/14/17 14:45 (Zofran Inj) 4 mg Q6H PRN IVP 06/14/17 14:45 (Restoril) 15 mg HS PRN PO 06/14/17 14:45 (Narcan Inj) 0.4 mg UNSCH PRN IV PUSH 06/14/17 14:45 (Milk Of Magnesia Liq) 30 ml Q12H PRN PO 06/14/17 14:45 (Senokot) 17.2 mg Q12H PRN PO 06/14/17 14:45 (Dulcolax Supp) 10 mg DAILY PRN RECTAL 06/14/17 14:45 (Lactulose Liq) 30 ml DAILY PRN PO 06/14/17 14:45 Sodium Chloride 1,000 ml @ 100 mls/hr Q10H IV 06/14/17 15:45 06/17/17 13:45 Miscellaneous Information Patient in critical care unit? Ass... [id number] .XX 06/14/17 20:45 (Chlorhexidine 2% Cloth) 3 pack DAILY@04 TOPICAL 06/15/17 04:00 06/19/17 04:01 06/17/17 04:00 (Chlorhexidine 2% Cloth) 3 pack UNSCH PRN TOPICAL 06/14/17 20:45 06/19/17 20:41 (KCl) 20 meq TID PO 06/17/17 13:00 06/19/17 14:29 06/17/17 18:07 (Fiber Con) 625 mg Q12HR PO 06/17/17 13:00 06/17/17 13:00 (Protonix) 40 mg DAILY PO 06/17/17 13:00 06/17/17 13:00 Vital Signs / I&O Vital Signs Date Time Temp Pulse Resp B/P (MAP) Pulse Ox O2 Delivery O2 Flow Rate FiO2 06/17/17 20:03 97.9 73 16 130/60 (83) 99 06/17/17 18:00 78 06/17/17 17:00 98 06/17/17 16:00 76 06/17/17 15:00 66 06/17/17 15:00 98.0 69 16 139/78 (98) 98 06/17/17 14:00 78 06/17/17 13:00 66 06/17/17 12:00 78 06/17/17 11:00 78 06/17/17 11:00 97.9 78 16 146/71 (96) 98 06/17/17 10:00 72 06/17/17 09:00 74 06/17/17 08:52 96.9 84 18 144/73 (96) 100 06/17/17 08:05 Nasal Cannula 06/17/17 08:00 76 06/17/17 07:36 97.8 87 18 164/74 (104) 100 06/17/17 07:00 78 06/17/17 07:00 98.3 78 16 158/70 (99) 98 06/17/17 06:06 79 06/17/17 05:00 75 06/17/17 04:18 83 06/17/17 03:55 97.4 83 18 138/67 (90) 99 06/17/17 03:00 82 06/17/17 02:00 77 06/17/17 01:00 79 06/17/17 00:00 97.5 98 18 162/72 (102) 98 06/16/17 22:00 84 06/16/17 21:00 82 I/O 06/16/17 06/16/17 06/16/17 06/17/17 06/17/17 06/17/17 07:00 15:00 23:00 07:00 15:00 23:00 Intake Total 1040 ml 820 ml 2000 ml 250 ml 300 ml Output Total 500 ml 2250 ml 400 ml 800 ml Balance 540 ml -1430 ml 1600 ml 250 ml -500 ml Intake Oral 240 ml 820 ml 1000 ml 300 ml IV Total 800 ml 1000 ml Other 250 ml Output Urine Total 500 ml 2250 ml 400 ml 800 ml # Bowel Movements 0 0 3 0 Physical Exam GENERAL: In NAD SKIN: Warm and dry. HEAD: Normocephalic. EYES: No scleral icterus. No injection or drainage. NECK: Supple, trachea midline. No JVD or lymphadenopathy. CARDIOVASCULAR: Irregular, without murmurs, gallops, or rubs. RESPIRATORY: Breath sounds equal bilaterally. No accessory muscle use. GASTROINTESTINAL: Abdomen soft, non-tender, nondistended. MUSCULOSKELETAL: No cyanosis, or edema. Laboratory Laboratory Tests Test 06/17/17 04:50 White Blood Count 7.3 TH/MM3 Red Blood Count 3.52 MIL/MM3 Hemoglobin 9.4 GM/DL Hematocrit 29.0 % Mean Corpuscular Volume 82.4 FL Mean Corpuscular Hemoglobin 26.8 PG Mean Corpuscular Hemoglobin Concent 32.5 % Red Cell Distribution Width 20.0 % Platelet Count 166 TH/MM3 Mean Platelet Volume 8.3 FL Neutrophils (%) (Auto) 73.7 % Lymphocytes (%) (Auto) 17.5 % Monocytes (%) (Auto) 7.7 % Eosinophils (%) (Auto) 0.7 % Basophils (%) (Auto) 0.4 % Neutrophils # (Auto) 5.3 TH/MM3 Lymphocytes # (Auto) 1.3 TH/MM3 Monocytes # (Auto) 0.6 TH/MM3 Eosinophils # (Auto) 0.0 TH/MM3 Basophils # (Auto) 0.0 TH/MM3 CBC Comment DIFF FINAL Differential Comment Blood Urea Nitrogen 31 MG/DL Creatinine 1.01 MG/DL Random Glucose 92 MG/DL Calcium Level 7.5 MG/DL Sodium Level 145 MEQ/L Potassium Level 3.1 MEQ/L Chloride Level 111 MEQ/L Carbon Dioxide Level 23.3 MEQ/L Anion Gap 11 MEQ/L Estimat Glomerular Filtration Rate 70 ML/MIN Assessment and Plan Problem List: (1) GI bleed ICD Codes: K92.2 - Gastrointestinal hemorrhage, unspecified Status: Acute (2) Atrial fibrillation ICD Codes: I48.91 - Unspecified atrial fibrillation Status: Chronic (3) Acute blood loss anemia ICD Codes: D62 - Acute posthemorrhagic anemia Status: Acute (4) Acute kidney injury ICD Codes: N17.9 - Acute kidney failure, unspecified Status: Resolved Assessment and Plan No recurrent bleeding. Remains stable from cardiac standpoint. Getting stronger. Stay off full anticoagulation for now. Transfer to rehab tomorrow as planned. Will schedule f/u after rehab completed. Jefry Mccord MD Jun 17, 2017 20:50
[2017-06-18] VITALS (16 sets, daily range): BP systolic 143–155; BP diastolic 64–72; PULSE 59–99; RESP 14–16; TEMP 97.6–98.3; O2SAT 96–98
[2017-06-18] MEDS: CHLORHEXIDINE GLUCONATE 2 % 1 PACK (2 CLOTHS)(taper/protocol) TOPICAL SCH (04:00)
[2017-06-18 04:27] LABS: AUTOMATED NEUTROPHIL # 4.1 TH/MM3 (1.8-7.7); BASOPHIL # 0.1 TH/MM3 (0-0.2); BASOPHIL % 0.8 % (0.0-2.0); EOSINOPHIL # 0.2 TH/MM3 (0-0.4); EOSINOPHIL % 2.6 % (0.0-4.0); HEMATOCRIT 28.4 % (39.0-51.0); HEMOGLOBIN 9.2 GM/DL (13.0-17.0); LYMPH % 25.4 % (9.0-44.0); LYMPHOCYTE # 1.7 TH/MM3 (1.0-4.8); MEAN CELL VOLUME 83.9 FL (80.0-100.0); MEAN CORPUSCULAR HEMOGLOBIN 27.2 PG (27.0-34.0); MEAN CORPUSCULAR HGB CONC 32.4 % (32.0-36.0); MEAN PLATELET VOLUME 8.2 FL (7.0-11.0); MONO % 10.5 % (0.0-8.0); MONOCYTE # 0.7 TH/MM3 (0-0.9); NEUT % 60.7 % (16.0-70.0); PLATELET COUNT 171 TH/MM3 (150-450); RED BLOOD COUNT 3.39 MIL/MM3 (4.50-5.90); RED CELL DISTRIBUTION WIDTH 19.8 % (11.6-17.2); WHITE BLOOD COUNT 6.8 TH/MM3 (4.0-11.0)
[2017-06-18 04:48] LABS: BICARBONATE 24.5 MEQ/L (21.0-32.0); CALCIUM 7.4 MG/DL (8.5-10.1); CREATININE 1.12 MG/DL (0.60-1.30)
[2017-06-18 04:59] LABS: CALCIUM-PROTEIN CORRECTED 8.8 MG/DL (8.5-10.1); TOTAL PROTEIN 4.6 GM/DL (6.4-8.2)
[2017-06-18] MEDS: CALCIUM POLYCARBOPHIL 625 MG TAB PO SCH (08:55)
[2017-06-18] MEDS: PANTOPRAZOLE SOD 40 MG DELAYED RELEASE TAB PO SCH (08:55)
[2017-06-18] MEDS: FUROSEMIDE 40 MG TAB PO SCH (08:57)
[2017-06-18] MEDS: POTASSIUM CHLORIDE 10 MEQ CONTROLLED RELEASE TAB PO SCH ×2 (08:57→13:23)
[2017-06-18] MEDS: DIGOXIN 0.125 MG TAB PO SCH (08:57)
[2017-06-18] MEDS: SPIRONOLACTONE 25 MG TAB PO SCH (08:57)
--- NOTE | 2017-06-18 10:33 | HHI.GIFU ---
GI Follow-up Note Consult Follow-up Subjective: Patient doing well. Two daughters at bedside. Eating better. No abd pain. H&H stable. 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 Available Data (labs, X- Rays, Procedues) : Laboratory Tests Test 06/15/17 14:06 06/15/17 21:32 06/16/17 04:10 06/16/17 04:15 Hemoglobin 9.4 GM/DL (13.0-17.0) 9.1 GM/DL (13.0-17.0) 9.0 GM/DL (13.0-17.0) Hematocrit 27.9 % (39.0-51.0) 27.4 % (39.0-51.0) 26.1 % (39.0-51.0) Prothrombin Time 15.4 SEC (9.8-11.6) Red Blood Count 3.12 MIL/MM3 (4.50-5.90) Red Cell Distribution Width 19.6 % (11.6-17.2) Platelet Count 123 TH/MM3 (150-450) Blood Urea Nitrogen 36 MG/DL (7-18) Total Protein 4.5 GM/DL (6.4-8.2) Calcium Level 7.1 MG/DL (8.5-10.1) Sodium Level 146 MEQ/L (136-145) Chloride Level 116 MEQ/L (98-107) Estimat Glomerular Filtration Rate 82 ML/MIN (>89) Test 06/17/17 04:50 06/18/17 04:10 Red Blood Count 3.52 MIL/MM3 (4.50-5.90) 3.39 MIL/MM3 (4.50-5.90) Hemoglobin 9.4 GM/DL (13.0-17.0) 9.2 GM/DL (13.0-17.0) Hematocrit 29.0 % (39.0-51.0) 28.4 % (39.0-51.0) Mean Corpuscular Hemoglobin 26.8 PG (27.0-34.0) Red Cell Distribution Width 20.0 % (11.6-17.2) 19.8 % (11.6-17.2) Neutrophils (%) (Auto) 73.7 % (16.0-70.0) Blood Urea Nitrogen 31 MG/DL (7-18) 28 MG/DL (7-18) Calcium Level 7.5 MG/DL (8.5-10.1) 7.4 MG/DL (8.5-10.1) Potassium Level 3.1 MEQ/L (3.5-5.1) Chloride Level 111 MEQ/L (98-107) 111 MEQ/L (98-107) Estimat Glomerular Filtration Rate 70 ML/MIN (>89) 62 ML/MIN (>89) Monocytes (%) (Auto) 10.5 % (0.0-8.0) Total Protein 4.6 GM/DL (6.4-8.2) ASSESSMENT/PLAN: 1. Recent GI bleed-likely a diverticular bleed(can not r/o a small bowel source) . Discussed with pt and family. Discussed risk of another bleed as well as risk of a thromboembolic event off anticoagulant. If cardiology wants him back on a blood thinner I am ok with it but prefer to wait 1-2 weeks to resume if feasible. OK to discharge to rehab. Will f/u polyp histology. Will sign off. It was a pleasure seeing Alban Moran Thank you for this consult. Entered by: Mark Anthony Zavala MD Jun 18, 2017 10:33
--- NOTE | 2017-06-18 11:15 | HHI.FPPN ---
Subjective Remarks Patient seen and examined bedside this morning. Patient continues to do well and is working with PT. Patient has been eating without difficulty. Patient denies any chest pain/RS breath/dizziness. No acute events overnight. He has not had any more bloody bowel movements. Inquiring about when he can leave and go to rehabilitation. (Fay Dillard MD R2) Objective Vitals Vital Signs Date Time Temp Pulse Resp B/P (MAP) Pulse Ox O2 Delivery O2 Flow Rate FiO2 06/18/17 10:24 98 21 06/18/17 10:00 64 06/18/17 09:00 60 06/18/17 08:00 72 06/18/17 07:00 97.6 78 14 149/72 (97) 96 06/18/17 07:00 96 Room Air 06/18/17 07:00 72 06/18/17 06:08 76 06/18/17 05:00 68 06/18/17 04:00 74 06/18/17 03:37 98.3 68 16 143/64 (90) 98 06/18/17 03:15 60 06/18/17 02:00 64 06/18/17 01:00 59 06/18/17 00:05 59 06/17/17 23:14 46 06/17/17 23:13 98.1 60 18 139/65 (89) 99 06/17/17 22:00 54 06/17/17 21:30 99 Room Air 06/17/17 21:00 88 06/17/17 20:55 21 06/17/17 20:03 97.9 73 16 130/60 (83) 99 06/17/17 20:00 76 06/17/17 19:00 81 06/17/17 18:00 78 06/17/17 17:00 98 06/17/17 16:00 76 06/17/17 15:00 66 06/17/17 15:00 98.0 69 16 139/78 (98) 98 06/17/17 14:00 78 06/17/17 13:00 66 06/17/17 12:00 78 I/O 06/17/17 06/17/17 06/17/17 06/18/17 06/18/17 06/18/17 07:00 15:00 23:00 07:00 15:00 23:00 Intake Total 2000 ml 250 ml 300 ml Output Total 400 ml 800 ml 900 ml Balance 1600 ml 250 ml -500 ml -900 ml Intake Oral 1000 ml 300 ml IV Total 1000 ml Other 250 ml Output Urine Total 400 ml 800 ml 900 ml # Bowel Movements 3 0 (Fay Dillard MD R2) Result Diagram: 06/18/1740906/18/17409 Objective Remarks GENERAL: Thin elderly male, in no apparent distress. SKIN: Cool and dry. HEAD: Atraumatic. Normocephalic. EYES: Extraocular motions intact. No scleral icterus. No injection or drainage. ENT: Nose without bleeding, purulent drainage or septal hematoma. Airway patent. CARDIOVASCULAR: Irregularly irregular, no murmurs rubs or gallops. RESPIRATORY: Clear to auscultation. Breath sounds equal bilaterally. No wheezes , rales, or rhonchi. GASTROINTESTINAL: Abdomen soft, non-tender, nondistended. No hepato-splenomegaly , or palpable masses. No guarding. MUSCULOSKELETAL: Extremities without clubbing, cyanosis, or edema. No joint tenderness, effusion, or edema noted. No calf tenderness. Negative Homans sign bilaterally. NEUROLOGICAL: Awake and alert. Normal speech. (Fay Dillard MD R2) A/P Assessment and Plan Attending note: Patient seen and examined . Case reviewed and discussed with the resident team. Agree with plan of care as discussed with me and documented in the resident note. Daughter and at bedside. Doing well, much more interactive, plans for EGD and colonoscopy on 06/17/17. Discharge Planning Anticipate discharge once anemia has resolved and patient has been cleared by GI. Likely 1-2 days. (Fay Dillard MD R2) Assessment and Plan Attending note: Patient was seen and examined on the morning of 06/18/17 in the presence of the nurse and daughter. Patient did have complaints of intermittent loss of hearing in his left ear, examination revealed normal tympanic membranes and by history this might be insidious sensorineural hearing loss versus eustachian tube dysfunction. Plans are being made for discharge to rehabilitation center. Discharge orders per resident team. Patient seen and examined. Case reviewed and discussed with resident team. Agree with plan of care is discussed with me and documented in the resident note. (Ángel Bradford MD) Problem List: (1) Acute blood loss anemia ICD Codes: D62 - Acute posthemorrhagic anemia Status: Acute Plan: Acute anemia, bright red blood per rectum, hemodynamically stable INR 2.2, Xarelto reversed Cleared for endoscopy by Cardio Symptoms 2 weeks, hemoglobin of 4.1 on admission Transfuse 4 units PRBCs Posttransfusion H&H: 10.1/29.1 H&H trend: 10.1, 9.4, 9.1, 9.0, 9.4, 9.2 this morning STABLE Continue to monitor for signs of blood loss Appreciate GI recs and intervention: EGD and colonoscopy results: - Sessile polyp, removed - Moderate diverticulosis and transverse colon, descending colon, sigmoid colon - Recommended high-fiber diet -EGD: semi-pedunculated polyps, ranging 3-5 mm in size (2) GI bleed ICD Codes: K92.2 - Gastrointestinal hemorrhage, unspecified Status: Acute Plan: See plan under anemia (3) Acute kidney injury ICD Codes: N17.9 - Acute kidney failure, unspecified Status: Resolved Plan: History of BPH Unknown baseline creatinine Resolved Creatinine 1.89 on admission, decreased to 1.12 today Continue to monitor See fluids below Avoid nephrotoxic agents, avoid NSAIDs Continue home diuretics; Lasix 40 PO daily, Spironolactone 25mg daily, consider adjusting if creatinine remains elevated (4) Elevated lactic acid level ICD Codes: R79.89 - Other specified abnormal findings of blood chemistry Status: Resolved Plan: Elevated lactic acid on admission of 12.7 May be due to lack of tissue perfusion Resolved Repeat lactic acid 2.7, 2.4, 1.5 (5) Atrial fibrillation ICD Codes: I48.91 - Unspecified atrial fibrillation Status: Chronic Plan: Chronic atrial fibrillation & SVT, with Xarelto anticoagulation Continue Digoxin, will use IV until after GI intervention Hold Xarelto Status post [facility] INR 2.2 on 06/14 INR 1.3 on 06/15 (6) Fall ICD Codes: W19.XXXA - Unspecified fall, initial encounter Status: Resolved Plan: Likely due to weakness and anemia. PT to evaluate patient. H&H: negative blood culture: negative urine culture: negative Chest x-ray within normal limits (7) fen/px Status: Acute Plan: Fluids: Continue normal saline at 100mls/hr for BETI, continue home diuretics and caution with overhydration Electrolytes: BMP within normal limits Nutrition: Liquid diet per GI GI prophylaxis: Pantoprazole DVT prophylaxis: SCDs, JOSE RAFAEL fisher. Chemoprophylaxis held due to concern for GI bleed. (Fay Dillard MD R2) Fay Dillard MD R2 Jun 18, 2017 11:15 Ángel Bradford MD Jun 18, 2017 17:08
[2017-06-18] MEDS ORDERED: SENN187 PO (11:21)
[2017-06-18] MEDS ORDERED: PANT40TA3 PO (11:21)
[2017-06-18] MEDS ORDERED: POTA-163 PO (11:21)
--- NOTE | 2017-06-18 11:22 | HHI.DCPOC ---
Discharge Care Plan Diagnosis: (1) Hypothermia (2) Atrial fibrillation (3) Elevated lactic acid level Goals to Promote Your Health * To prevent worsening of your condition and complications * To maintain your health at the optimal level Directions to Meet Your Goals Take your medications as prescribed Follow your dietary instruction Follow activity as directed Keep your appointments as scheduled Take your immunizations and boosters as scheduled If your symptoms worsen call your PCP, if no PCP go to Urgent Care Center or Emergency Room Smoking is Dangerous to Your Health. Avoid second hand smoke Call the 24-hour hour crisis hotline for domestic abuse at Fay Dillard MD R2 Jun 18, 2017 11:22
--- NOTE | 2017-06-18 14:33 | PD.CARD.PN ---
Subjective Subjective Remarks No CP or SOB, feels much better Objective Vital Signs / I&O Vital Signs Date Time Temp Pulse Resp B/P (MAP) Pulse Ox O2 Delivery O2 Flow Rate FiO2 06/18/17 13:00 78 06/18/17 12:00 99 06/18/17 11:00 97.7 72 16 155/64 (94) 97 06/18/17 11:00 74 06/18/17 10:24 98 21 06/18/17 10:00 64 06/18/17 09:00 60 06/18/17 08:00 72 06/18/17 07:00 97.6 78 14 149/72 (97) 96 06/18/17 07:00 96 Room Air 06/18/17 07:00 72 06/18/17 06:08 76 06/18/17 05:00 68 06/18/17 04:00 74 06/18/17 03:37 98.3 68 16 143/64 (90) 98 06/18/17 03:15 60 06/18/17 02:00 64 06/18/17 01:00 59 06/18/17 00:05 59 06/17/17 23:14 46 06/17/17 23:13 98.1 60 18 139/65 (89) 99 06/17/17 22:00 54 06/17/17 21:30 99 Room Air 06/17/17 21:00 88 06/17/17 20:55 21 06/17/17 20:03 97.9 73 16 130/60 (83) 99 06/17/17 20:00 76 06/17/17 19:00 81 06/17/17 18:00 78 06/17/17 17:00 98 06/17/17 16:00 76 06/17/17 15:00 66 06/17/17 15:00 98.0 69 16 139/78 (98) 98 I/O 06/17/17 06/17/17 06/17/17 06/18/17 06/18/17 06/18/17 07:00 15:00 23:00 07:00 15:00 23:00 Intake Total 2000 ml 250 ml 300 ml Output Total 400 ml 800 ml 900 ml Balance 1600 ml 250 ml -500 ml -900 ml Intake Oral 1000 ml 300 ml IV Total 1000 ml Other 250 ml Output Urine Total 400 ml 800 ml 900 ml # Bowel Movements 3 0 Physical Exam GENERAL: In NAD SKIN: Warm and dry. HEAD: Normocephalic. EYES: No scleral icterus. No injection or drainage. NECK: Supple, trachea midline. No JVD or lymphadenopathy. CARDIOVASCULAR: Irregular, without murmurs, gallops, or rubs. RESPIRATORY: Breath sounds equal bilaterally. No accessory muscle use. GASTROINTESTINAL: Abdomen soft, non-tender, nondistended. MUSCULOSKELETAL: No cyanosis, or edema. Laboratory Laboratory Tests Test 06/18/17 04:10 White Blood Count 6.8 TH/MM3 Red Blood Count 3.39 MIL/MM3 Hemoglobin 9.2 GM/DL Hematocrit 28.4 % Mean Corpuscular Volume 83.9 FL Mean Corpuscular Hemoglobin 27.2 PG Mean Corpuscular Hemoglobin Concent 32.4 % Red Cell Distribution Width 19.8 % Platelet Count 171 TH/MM3 Mean Platelet Volume 8.2 FL Neutrophils (%) (Auto) 60.7 % Lymphocytes (%) (Auto) 25.4 % Monocytes (%) (Auto) 10.5 % Eosinophils (%) (Auto) 2.6 % Basophils (%) (Auto) 0.8 % Neutrophils # (Auto) 4.1 TH/MM3 Lymphocytes # (Auto) 1.7 TH/MM3 Monocytes # (Auto) 0.7 TH/MM3 Eosinophils # (Auto) 0.2 TH/MM3 Basophils # (Auto) 0.1 TH/MM3 CBC Comment DIFF FINAL Differential Comment Blood Urea Nitrogen 28 MG/DL Creatinine 1.12 MG/DL Random Glucose 95 MG/DL Total Protein 4.6 GM/DL Calcium Level 7.4 MG/DL Sodium Level 143 MEQ/L Potassium Level 3.6 MEQ/L Chloride Level 111 MEQ/L Carbon Dioxide Level 24.5 MEQ/L Anion Gap 8 MEQ/L Estimat Glomerular Filtration Rate 62 ML/MIN Protein Corrected Calcium 8.8 MG/DL Assessment and Plan Problem List: (1) GI bleed ICD Codes: K92.2 - Gastrointestinal hemorrhage, unspecified Status: Acute (2) Atrial fibrillation ICD Codes: I48.91 - Unspecified atrial fibrillation Status: Chronic (3) Acute blood loss anemia ICD Codes: D62 - Acute posthemorrhagic anemia Status: Acute (4) Acute kidney injury ICD Codes: N17.9 - Acute kidney failure, unspecified Status: Resolved Assessment and Plan No new cardiac issues. No recurrent bleeding. Remains stable from cardiac standpoint. Stay off full anticoagulation for now. Transfer to rehab today as planned. Will schedule f/u after rehab completed. Plan d/w pt and family. Jefry Mccord MD Jun 18, 2017 14:33
== END 2017-06-18 14:15 | DRG 378 ==
LOC: NEPE 11:07 → NEDA 13:34 → HIME 20:20 → HCPC 06-15 19:53
PROVIDERS: ADMIT Family Medicine; ATTEND Family Medicine
PROC: 30283B1 Transfusion of Nonautologous 4-Factor Prothrombin Complex Concentrate into Vein, Percutaneous Approach (ICD-10-PCS; principal; 2017-06-14)
PROC: 30233N1 Transfusion of Nonautologous Red Blood Cells into Peripheral Vein, Percutaneous Approach (ICD-10-PCS; 2017-06-14)
PROC: 0DJ08ZZ Inspection of Upper Intestinal Tract, Via Natural or Artificial Opening Endoscopic (ICD-10-PCS; 2017-06-17)
PROC: 0DBH8ZX Excision of Cecum, Via Natural or Artificial Opening Endoscopic, Diagnostic (ICD-10-PCS; 2017-06-17)
DX: K57.91 Diverticulosis of intestine, part unspecified, without perforation or abscess with bleeding (principal); D62 Acute posthemorrhagic anemia; N17.9 Acute kidney failure, unspecified; E87.2 Acidosis; I50.9 Heart failure, unspecified; I48.2 Chronic atrial fibrillation; R68.0 Hypothermia, not associated with low environmental temperature; N40.0 Benign prostatic hyperplasia without lower urinary tract symptoms; E78.5 Hyperlipidemia, unspecified; H91.92 Unspecified hearing loss, left ear; R63.0 Anorexia; K31.7 Polyp of stomach and duodenum; D12.0 Benign neoplasm of cecum; Z91.81 History of falling; Z85.46 Personal history of malignant neoplasm of prostate; Z79.01 Long term (current) use of anticoagulants
CPT/HCPCS: 36430; 36600; 71045; 80048; 80053; 81001; 82140; 82550; 82805; 82948; 83605; 83735; 83880; 84100; 84155; 85007; 85014; 85018; 85025; 85027; 85384; 85610; 85730; 86850; 86900; 86901; 86920; 87040; 87641; 88305; 93005; C9113; C9132; J1160; J1940; J7030; J7050; P9016

== ENCOUNTER 2017-08-12 22:05 | Emergency (ER) | payer MEDICARE, OTHER ==
[~2017-08-12] VITALS: Ht 157.5 cm; Wt 50.0 kg
[~2017-08-12 22:05] MED LIST changes: +DIGO0.12 PO; +FURO40TA PO; +PANT40TA3 PO; +POTA-163 PO; +SENN187 PO; +SPIR25TA PO; -XARE20TA PO
[2017-08-12 23:13] VITALS: BP 199/79; PULSE 84; RESP 18; TEMP 98.1; O2SAT 99
== END 2017-08-13 00:37 | disposition left against medical advice (07) ==
LOC: NED 22:05
DX: R39.198 Other difficulties with micturition (principal)
CPT/HCPCS: 99281